=== PATIENT | female | born 1980 | race Caucasian/White ===

== ENCOUNTER 2022-10-06 13:17 | Outpatient (CLI) | payer OTHER, SELFPAY ==
--- NOTE | 2022-10-06 13:35 | ECG_ITS ---
Measurements Intervals [place] Rate: 102 P: 63 DC: 121 QRS: 51 QRSD: 82 T: 50 QT: 334 QTc: 437 Interpretive Statements SINUS TACHYCARDIA POSSIBLE LEFT ATRIAL ENLARGEMENT [-0.1mV P WAVE IN V1/V2] ABNORMAL RHYTHM ECG NO PREVIOUS ECG AVAILABLE FOR COMPARISON Electronically Signed On 10-06-2022 18:03:18 WORKERS COMPENSATION COORDINATOR by Darline Cevallos M.D.
[2022-10-06 14:19] LABS: Hematocrit 42.5 % (37.0-47.0); Hemoglobin 14.4 g/dL (12.0-15.0)
== END 2022-10-06 13:18 | disposition home or self-care (01) ==
PROVIDERS: Anesthesiology; Visit Provider Surgery Plastic and Reconstructive Surgery
DX: L57.4 Cutis laxa senilis (principal)
CPT/HCPCS: 36415; 85014; 85018; 93005

== ENCOUNTER 2022-10-12 01:01 | Day surgery (SDC) | payer OTHER, SELFPAY ==
[2022-09-27 14:13] VITALS: BMI 24.1
--- NOTE | 2022-09-27 14:34 | SUR.PREOP ---
Report to the Outpatient Waiting Room, entrance under the green pavilion located off [facility], at time 0830 on date 10/12/2022. Planned Procedure Time: 1030. Time changes happen often and if your time is changed the preop area will call you the afternoon before. - You and your visitor will be asked to self-screen and do not enter if you have any COVID symptoms. - Only one visitor is requested with a max of two and NO children visitors are allowed at this time. - The patient visitor may be requested to leave or wait in car when not with patient due to distancing restrictions. - A mask is optional within the hospital. Patients may have clear liquids (water, carbonated beverages, clear teas, apple juice) until 3 hours prior to surgery with a maximum of 20 ounces- 0730. - No food from midnight until time of surgery - Infants may have breast milk until 4 hours before surgery, formula 6 hours prior to surgery. - Children will be allowed to drink immediately following surgery. If applicable, please bring a bottle or sippy cup to assist with drinking. Juice, water, soda, and popsicles are readily available. For infants on formula, please bring formula the day of surgery. Pacifiers are allowed. Take the following medications with a SIP of water the morning of surgery: N/A Medications to discontinue per physician N/A Date to take last dose N/A Please no make-up, nail bulgarian, hairspray, perfume, deodorant, or body powder the day of surgery. No jewelry (including any body piercings) or valuables the day of surgery, leave them at home. Please take a shower or bath the night before, or the morning of, surgery with an antibacterial soap. Wear comfortable, loose fitting clothing. Children are encouraged to wear pajamas. - Jewelry must be removed prior to entering the operating room. Rings and piercings that are not removed may be cut off. - The hospital will not accept responsibility for valuables. - Please leave all valuables, including medications, at home the day of surgery. If you are going home after surgery, a licensed cdl a driver must drive you home. - NO public transportation without another adult if you receive anesthesia. - We recommend that an adult stay with you for 24 hours following discharge. - We also recommend that you do not drive, make important decision, drink alcoholic beverages, or take any drugs that were not prescribed by your health care provider for at least 24 hours after your discharge time. For Pediatric surgeries, we recommend two adults accompany the child home. Follow any additional instructions given to you from your surgeon. If you or anyone in your household have experienced Covid symptoms in the past week, please notify your surgeon or the nurse liaison at the phone number below for possible testing. Telephone instructions given to patient and asked if any additional questions and then verbalized understanding. Patient advised to call surgeon office or pre surgery nurse liaison [phone] if any additional questions.
[2022-10-12] VITALS (12 sets, daily range): BP systolic 105–125; BP diastolic 68–88; PULSE 94–123; RESP 13–18; TEMP 36.2–37.2; O2SAT 92–100
[2022-10-12 07:52] LABS: Urine Cotinine NEGATIVE
[2022-10-12] MEDS: LACTATED RINGERS 1,000 ML 30 ML IV CONT ×2 (08:00→13:02)
--- NOTE | 2022-10-12 08:14 | P.PNAN_ITS ---
Anes - Initial Pre Proc Eval Procedure: Operation Date: 10/12/22 09:00 Proposed Procedures p Bilateral Breast Augmentation, - Esequiel Ocasio MD s Abdominoplasty with Liposuction - Esequiel Ocasio MD Date/Time: 10/12/22 08:14 Surgeon: Esequiel Ocasio MD Pre Op Diagnosis: micromastia, skin laxity, localized adiposity Patient Data Age: 42 Gender: F Height: 1.6 m Weight: 61.8 kg Allergies Allergy/AdvReac Type Severity Reaction Status Date / Time adhesive tape Allergy Severe RASH Verified 10/12/22 08:09 ACYCLINE Allergy Severe RASH Uncoded 10/12/22 08:09 Home Medications Medication Instructions Recorded Confirmed Type venlafaxine See Rx Instructions .Route .COMPLEX 03/23/22 10/12/22 History Laboratory Tests 10/12/22 07:31 Cotinine Negative Patient hx anesthesia problems: other (stopped breathing) Family hx anesthesia problems: none Results Review: All pre-operative results and documents have been reviewed as part of the pre- operative evaluation. [facility] Past Medical History Medical History Anxiety Family History Family History Mother Breast cancer Brain cancer Lung cancer Social History Social History Smoking packs per day: 0.75 Smoking cigarettes per day: 15.0 Years smoked: 6 Smoking pack-years: 4.50 Smoking status: Former smoker Tobacco type: cigarettes Smoking end date: 10/17/11 Alcohol intake: current Drinks per week: 2 Substance use: never Living arrangements: with family Spiritual care concerns: No Anes - Eval Final PreProcedure Day of Procedure 10/12/22 08:14 Patient weight: normal Heart: regular rate and rhythm Lungs: clear to auscultation Airway: Mallampati scale Neurological: alert and oriented Last oral intake: >/= 8 hours ASA classification: II Emergent: no Anesthetic plan: proceed Anesthesia type and monitoring: general LMA and standard monitoring Results Review: All pre-operative results and documents have been reviewed as part of the pre- operative evaluation. Informed Consent: The patient's anesthetic plan and its attendant risks and benefits were discussed with the patient/family/POA. Questions were solicited and answers provided to the satisfaction of the patient/family/POA.
[2022-10-12] MEDS: SCOPOLAMINE 1.5 MG PATCH TRANSDERM (08:30)
--- NOTE | 2022-10-12 08:34 | WPDHPUPDATE1 ---
History and Physical Update Update Date/Time: 10/12/22 08:34 History and Physical has been reviewed, including an updated exam of the patient. There are NO changes in the patient's condition. Risks, benefits, and alternatives have been discussed and questions answered. Patient agrees to proceed with procedure.
--- NOTE | 2022-10-12 08:34 | W.PM.PROC2 ---
Procedure Note - Detailed Date of Procedure 10/12/22 Pre-op Diagnosis micromastia, skin laxity, localized adiposity Post-op Diagnosis Same Procedure Performed 1. Bilateral augmentation mammaplasty 2. Progressive tension abdominoplasty with suction lipectomy Surgeon Esequiel Ocasio MD Anesthesia General Findings Bilateral Lavonne Cohesive 560cc Right - REF# [id number] SN [id number] Left - REF# [id number] SN [id number] Abdominoplasty tissue removed: 982 grams Lipoaspirate: 2200 cc Description of Procedure They are here today for the above. Previously and again today the risks, benefits, alternatives were discussed in extensive detail. I wanted them to be very realistic about the risks involved as well as expectations. We discussed aftercare and what to monitor for. I was very upfront about the risks of wound breakdown leading to loss of skin, open wounds, and need for additional procedures with permanent abdominal deformity. We discussed DVT/PE risks and management. Made sure answered all of their questions to their satisfaction today and consent was obtained. They were marked in the preoperative holding area with their verification. The patient was taken to the operating room placed supine on the operating table. Anesthesia was provided by anesthesiology. A Tinoco catheter was started. They were prepped and draped in a standard sterile fashion. A surgical time-out was taken. Breast 1% lidocaine and 0.25% Marcaine with epinephrine was used anesthetize as a field block. She was prepped and draped in a standard sterile fashion. Tegaderm nipple Gamez were placed. A 15 blade used to make an incision along the inframammary fold. Dissection was continued at 45 degree angle until the chest wall as identified. I incised the pectoralis major along its inferior border and completely released the inferior border leaving the medial border intact. I created a subpectoral pocket in the appropriate dimensions based on our preoperative planning for the implant. I then copiously irrigated with saline solution and verified a strict hemostasis. Next the use a triple antibiotic and Betadine containing solution to irrigate the pocket. I washed my gloves with the triple antibiotic and Betadine solution. We washed the implant immediately upon opening it with this solution and only opened it when we needed it. I used implant funnel and no-touch technique. The implant was introduced into the pocket using the funnel. Having verified positioning of the implant this was closed using 2-0 Vicryl followed by 3-0 Monocryl in a running subcuticular 4-0 Monocryl followed by tissue glue. Abdomen I placed the patient in a flexed position to verify the upper and lower markings would reach. I then placed supine. A thorough abdominal examination was completed. Stab incisions were made and tumescent solution infiltrated. Once adequate time was allowed for hemostasis a 5mm basket cannula was utilized to complete suction lipectomy based on S.A.F.E. technique in multiple planes and passes. There were turned to bilateral lateral decubitus position with care taken to protect them for injury during this process. Suction lipectomy continued to result based on pre-operative planning, intra-operative observation, and rolling pinch test which were in full agreement. A 10 blade was used to make the upper incision. I continued dissection down to the level of fascia. Elevated just what was necessary for repair of the diastasis. I then again flexed the bed to verify the upper skin flap would reach the lower markings without tension. Once verified I placed her supine once again and a 10 blade used to make the lower incision. I elevated up to level the umbilicus and left the umbilicus intact on a well-vascularized stalk. The intervening tissue was removed. A 2 mm blunt cannula with 0.5% bupivicaine was injected deep to the fascia bilaterally. I plicated the diastasis recti usin
[2022-10-12] MEDS: ceFAZolin 2 GM/D5W 50 ML 2 GM/50 ML BAG IVPB (08:44)
[2022-10-12] MEDS: TRANEXAMIC ACID 1,000MG/ISO100 1,000 MG/100 ML BAG 200 MG IVPB (08:58)
[2022-10-12] MEDS: LIDOCAINE HCL 1% PF 30 ML VIAL 60 ML INFILTRATE (10:06)
[2022-10-12] MEDS: BUPIVACAINE/EPINEPHRINE 0.5% 30 ML VIAL 60 ML INFILTRATE (10:06)
[2022-10-12] MEDS: NACL 0.9% IRRIG POUR BOTTLE 900 ML, GENTAMICIN SULFATE INJ 160 MG, ceFAZolin 2 GM, POVI... IRRIGATION (11:19)
[2022-10-12] MEDS: LACTATED RINGERS IRRIG 1,000 ML, LIDOCAINE HCL 1% LOCAL INJ 50 ML, EPINEPHrine HCL INJ ... INFILTRATE (11:19)
[2022-10-12] MEDS: KETOROLAC 15 MG/ML VIAL (*BKC) IV PUSH (12:25)
[2022-10-12] MEDS: ceFAZolin SODIUM 1 GM VIAL IV PUSH (12:35)
[2022-10-12] MEDS: HYDROmorphone HCL INJ (*CRX) 1 MG/ML SYR 0.5 MG IV PUSH ×2 (13:36→13:49)
[2022-10-12] MEDS: GABAPENTIN 300 MG CAPSULE PO ×2 (14:32→20:17)
[2022-10-12] MEDS: LACTATED RINGERS 1,000 ML 125 ML IV CONT (14:33)
[2022-10-12] MEDS: carisoprodoL (*CRX) 350 MG TABLET PO ×2 (17:00→23:24)
[2022-10-12] MEDS: ENOXAPARIN 40 MG/0.4 ML SYRINGE SUB-Q (19:20)
[2022-10-12] MEDS: DOCUSATE SODIUM 100 MG CAPSULE PO (20:17)
[2022-10-12] MEDS: oxyCODONE/ACETAMINOPHEN (*CRX) 5-325 MG TABLET PO ×2 (20:18→23:24)
[2022-10-13 05:00] VITALS: BP 106/62; PULSE 118; RESP 16; TEMP 37.2
[2022-10-13] MEDS: oxyCODONE/ACETAMINOPHEN (*CRX) 5-325 MG TABLET PO ×2 (05:18→13:56)
[2022-10-13] MEDS: carisoprodoL (*CRX) 350 MG TABLET PO ×2 (05:19→12:24)
--- NOTE | 2022-10-13 07:10 | WPDPN ---
Progress Note: A&P Assessment and Plan (1) Micromastia: Code(s): N64.82 - Hypoplasia of breast Status: Acute Assessment and Plan: Doing well after bilateral augmentation mammaplasty and progressive tension abdominoplasty with suction lipectomy. Will discharge home. Today we had a lengthy discussion about the care. Activity limitations. What monitor for. What is an emergency and want to proceed to the ER/ dial 911. Explained we are available for all her questions. This was a lengthy open-ended conversation making sure she was well informed. She voiced a clear understanding. Answered all her questions. I will see her back. (2) Localized adiposity: Code(s): E65 - Localized adiposity Status: Acute (3) Skin laxity: Code(s): L57.4 - Cutis laxa senilis Status: Acute Subjective Date/time seen: 10/13/22 07:10 Interval history: She is doing very well after bilateral augmentation mammaplasty and progressive tension abdominoplasty with suction lipectomy.. No fevers or chills. No nausea vomiting. No shortness of breath. No chest pain. No tenderness. Pain is controlled. Tolerating some diet. Review of Systems Review of Systems: All systems reviewed & are unremarkable except as noted in HPI and below Exam Narrative: Alert and oriented no obvious distress Respiratory on labored Bilateral breast soft. No signs of infection. No hematoma. No seroma. Abdomen flanks are healing well. No signs of infection. No hematoma. No seroma. Good color and capillary refill. No calf tenderness. Negative Homans. Objective Data Vital Signs Vital Signs: Vital Signs - 24 hr 10/12/22 08:00 10/12/22 13:02 10/12/22 13:15 Temperature 37.0 C 36.2 C L Pulse Rate 94 117 H 118 H Respiratory Rate 16 14 16 Blood Pressure 114/78 125/83 120/73 Pulse Oximetry 100 100 100 Oxygen Delivery Room Air Simple Face Mask Simple Face Mask Oxygen Flow Rate 8 8 10/12/22 13:30 10/12/22 13:45 10/12/22 13:58 Temperature 36.6 C 36.6 C Pulse Rate 116 H 120 H 123 H Respiratory Rate 16 13 13 Blood Pressure 119/88 120/68 115/75 Pulse Oximetry 100 97 92 Oxygen Delivery Simple Face Mask Nasal Cannula Nasal Cannula Oxygen Flow Rate 8 2 2 10/12/22 14:10 10/12/22 14:10 10/12/22 14:30 Temperature 36.9 C Pulse Rate 120 H 120 H 110 H Respiratory Rate 18 18 Blood Pressure 124/79 Pulse Oximetry 98 98 96 Oxygen Delivery Nasal Cannula Nasal Cannula Oxygen Flow Rate 2 1 10/12/22 16:00 10/12/22 17:00 10/12/22 17:00 Temperature 36.9 C Pulse Rate 115 H Respiratory Rate 18 Blood Pressure 111/72 Pulse Oximetry 100 96 96 Oxygen Delivery Room Air Room Air Oxygen Flow Rate 10/12/22 18:45 10/12/22 18:45 10/12/22 23:52 Temperature 36.8 C 37.2 C Pulse Rate 120 H 119 H Respiratory Rate 18 18 Blood Pressure 118/74 105/68 Pulse Oximetry Oxygen Delivery Room Air Oxygen Flow Rate 10/12/22 23:25 10/13/22 04:06 10/13/22 05:00 Temperature 37.2 C Pulse Rate 118 H Respiratory Rate 16 Blood Pressure 106/62 Pulse Oximetry Oxygen Delivery Room Air Room Air Oxygen Flow Rate Intake/Output Intake/Output: Intake & Output 10/10/22 10/11/22 10/12/22 10/13/22 23:59 23:59 23:59 23:59 Intake Total 4910 400 Output Total 1150 250 Balance 3760 150 Meds/Results Medications: Active Medications Generic Name Dose Route Start Last Admin Trade Name Freq PRN Reason Stop Dose Admin Carisoprodol 350 mg 10/12/22 18:00 10/13/22 05:19 Carisoprodol (*Crx) 350 Mg Tablet PO 350 mg Q6HR GHASSAN Administration Diazepam 5 mg 10/12/22 12:41 Diazepam (*Crx) 5 Mg Tablet PO TID PRN Anxiety Docusate Sodium 100 mg 10/12/22 21:00 10/12/22 20:17 Docusate Sodium 100 Mg Capsule PO 100 mg Q12HR GHASSAN Administration Enoxaparin Sodium 40 mg 10/12/22 19:00 10/12/22 19:20 Enoxaparin 40 Mg/0.4 Ml Syringe SUB-Q 40 mg Q
--- NOTE | 2022-10-13 07:13 | P.DS_ITS ---
DS: Admitting Diagnosis Discharge Date 10/13/2022 Admitting Diagnosis Micromastia, skin laxity, localized adiposity DS: Discharge Diagnosis Discharge Diagnosis (1) Micromastia: Code(s): N64.82 - Hypoplasia of breast Status: Acute (2) Localized adiposity: Code(s): E65 - Localized adiposity Status: Acute (3) Skin laxity: Code(s): L57.4 - Cutis laxa senilis Status: Acute DS: Summary Hospital Course Hospital Course: Was admitted following bilateral augmentation mammaplasty and progressive tension abdominoplasty with suction lipectomy. Has done very well. Tolerating diet. Pain controlled. Ambulating. Will discharge home. Time Spent with Patient Time attestation: Total time spent providing and/or coordinating discharge services: Exam Narrative: Alert and oriented no obvious distress Respiratory on labored Bilateral breast soft. No signs of infection. No hematoma. No seroma. Abdomen flanks are healing well. No signs of infection. No hematoma. No seroma. Good color and capillary refill. No calf tenderness. Negative Homans. DS: Data Data Completed and Pending Labs on day of discharge: Labs from last 24 hours 10/12/22 07:31 Cotinine Negative Discharge Plan Discharge Patient Disposition: Home, Self-Care Discharge Instructions: POST OPERATIVE DISCHARGE INSTRUCTIONS ESEQUIEL OCASIO M.D. [facility] [address] [place] [address] * No driving for 24 hours after anesthesia and while you are taking pain medication. * Take all prescribed medication as directed * Diet as tolerated. * No lifting or activity that raises blood pressure for 48 hours. * Regular walking / ambulation. * May shower 24 hours after surgery. Once you shower do not take pain medication before showering as the combination of medication and heat may cause you to feel dizzy or pass out. * No pools or tubs for 2 weeks. * Slowly stand up straight as tolerated. * No straining or lifting more than 20 pounds. * If no bowel movement within 24 hours may use laxative. * Call with any questions or concerns. * Dressing Care: Continue abdominal binder / foam and surgical bra 23 hours per day. * Remove the Scopolamine patch that was placed behind your ear in 72 hours or less. Wash your hands after touching. If you have any questions or concerns, please call the office . If it is after hours you will be directed to the stone driller helper exchange. Shortness of breath, chest pain, or other medical emergency dial 911 / proceed to the Emergency Room. Stand Alone Forms: General Discharge Instructions Follow-up/Referrals: Esequiel Ocasio MD [Physician] - 1 Week Discharge Medications: Continued venlafaxine See Rx Instructions .ROUTE .COMPLEX Rx Instructions: takes 75MG at HS
[2022-10-13 07:30] VITALS: BP 95/60; PULSE 120; RESP 17; TEMP 36.9; O2SAT 95
--- NOTE | 2022-10-13 08:37 | WPDANESPN ---
Anes - Prog Note Post-Op Date/Time: 10/13/22 08:37 Cardiovascular status: normal Respiratory status: normal Airway patency: baseline Mental status: baseline Post-Op hydration status: normal Vital Signs: Last Vital Signs Temp 99.0 F 10/13/22 05:00 Pulse 118 H 10/13/22 05:00 Resp 16 10/13/22 05:00 BP 106/62 10/13/22 05:00 Pulse Ox 96 10/12/22 17:00 O2 Del Method Room Air 10/13/22 04:06 O2 Flow Rate 1 10/12/22 14:30 Pain Score (VAS): 5 I/O: Intake & Output 10/12/22 10/13/22 10/13/22 23:59 07:59 15:59 Intake Total 2960 400 Output Total 1100 250 Balance 1860 150 Patient Feedback: Patient satisfied with anesthetic care.
[2022-10-13] MEDS: GABAPENTIN 300 MG CAPSULE PO ×2 (11:03→17:00)
[2022-10-13] MEDS: DOCUSATE SODIUM 100 MG CAPSULE PO (11:04)
--- NOTE | 2022-10-13 12:28 | PC.NURSE ---
1140 Pt up to the shower to relax and try to void on her own. No success while in the shower. 1215 Pt feels the urge to void, sat on the toilet for 10 mins, no success. She would like to give herself a little more time and drink some more water before RN uses straight catheter. Says she feels like its right there . 1224 RN gave pt her Soma to help relax her muscles, she is in bed drinking her water. Will give pt another 30 mins and have her try to void on her own before doing straight catheter. Pt agreed.
== END 2022-10-13 18:20 | disposition home or self-care (01) ==
LOC: ANHSURGERY 08:35 → ANHOB2 14:06
PROVIDERS: Visit Provider Surgery Plastic and Reconstructive Surgery
PROC: (CPT 19325; principal; 2022-10-12 09:00)
PROC: (CPT 19325; 2022-10-12 09:00)
DX: Z41.1 Encounter for cosmetic surgery (principal); N64.82 Hypoplasia of breast; L57.4 Cutis laxa senilis; E65 Localized adiposity; F41.9 Anxiety disorder, unspecified; Z87.891 Personal history of nicotine dependence
CPT/HCPCS: 19325; 15830; 15847; 15877; 80307; 99199; A9270; J0171; J0690; J1100; J1170; J1580; J1650; J1885; J2250; J2370; J2405; J2704; J2710; J3010; J7120

== ENCOUNTER 2024-04-27 13:18 | Outpatient (CLI) | payer BC, SELFPAY ==
[2024-04-27 13:47] LABS: Hematocrit 43.2 % (37.0-47.0); Hemoglobin 14.6 g/dL (12.0-15.0); Mean Corpuscular HGB Conc 33.8 g/dl (32-36); Mean Corpuscular Hemoglobin 30.5 pg (26-34); Mean Corpuscular Volume 90.4 fl (80-100); Mean Platelet Volume 8.6 fl (7.4-10.4); Platelet Count Result 307 k/mm3 (150-375); Red Blood Count 4.78 M/mm3 (4.2-5.4); Red Cell Distribution Width 12.7 % (11.5-14.5); White Blood Count 5.8 K/mm3 (4.5-10.0)
== END 2024-04-27 13:19 | disposition home or self-care (01) ==
LOC: ANHSURGERY 13:22
PROVIDERS: Visit Provider Student in an Organized Health Care Education/Training Program
DX: Z30.2 Encounter for sterilization (principal)
CPT/HCPCS: 36415; 85027

== ENCOUNTER 2024-05-03 01:25 | Day surgery (SDC) | payer BC, SELFPAY ==
[2024-04-25 15:04] VITALS: BMI 21.2
--- NOTE | 2024-04-25 15:16 | SUR.PREOP ---
Report to the Outpatient Waiting Room, entrance under the green pavilion located off [facility], at 1100 on 05/03/24. Planned Procedure Time: 1300. Time changes happen often and if your time is changed the preop area will call you the afternoon before. - You and your visitor will be asked to self-screen and do not enter if you have any COVID symptoms. - A mask is optional within the hospital at this time. Patients may have clear liquids (water, carbonated beverages, clear teas, apple juice) until 3 hours prior to surgery with a maximum of 20 ounces. - No food from midnight until time of surgery - Infants may have breast milk until 4 hours before surgery, infant formula 6 hours prior to surgery. - Children will be allowed to drink immediately following surgery. If applicable, please bring a bottle or sippy cup to assist with drinking. Juice, water, soda, and popsicles are readily available. For infants on formula, please bring formula the day of surgery. Pacifiers are allowed. Take the following medications with a SIP of water the morning of surgery: n/a DO NOT STOP ANY OF YOUR OTHER PRESCRIPTION MEDICATIONS PRIOR TO SURGERY ?EXCEPT THE FOLLOWING Medications to discontinue per physician n/a Date to take last dose n/a Please no make-up, nail iranian, hairspray, perfume, deodorant, or body powder the day of surgery. No jewelry (including any body piercings) or valuables the day of surgery, leave them at home. Please take a shower or bath the night before, or the morning of, surgery with an antibacterial soap. Wear comfortable, loose fitting clothing. - Jewelry must be removed prior to entering the operating room. Rings and piercings that are not removed may be cut off. - The hospital will not accept responsibility for valuables. - Please leave all valuables, including medications, at home the day of surgery. If you are going home after surgery, a licensed funeral driver must drive you home. - NO public transportation without another adult if you receive anesthesia. - We recommend that an adult stay with you for 24 hours following discharge. - We also recommend that you do not drive, make important decision, drink alcoholic beverages, or take any drugs that were not prescribed by your health care provider for at least 24 hours after your discharge time. Follow any additional instructions given to you from your surgeon. If you or anyone in your household have experienced Covid symptoms in the past week, please notify your surgeon or the nurse liaison at the phone number below for possible testing. Telephone instructions given to patient and asked if any additional questions and then verbalized understanding. Patient advised to call surgeon office or pre surgery nurse liaison [phone] if any additional questions.
--- NOTE | 2024-05-02 13:21 | PM.IMHP ---
H&P: HPI History of Present Illness Date/Time: 05/02/24 13:21 Chief Complaint: encounter for permanent sterilization Narrative: 43-year-old female who presents for laparoscopic bilateral salpingectomy for permanent sterilization. Patient and her do not desire any future children. given her history and risk of breast cancer, she would like to avoid any hormonal contraception. Patient desires permanent sterilization via tubal ligation. Review of Systems Cardiovascular: Cardiovascular: Denies chest pain, Denies leg edema, Denies palpitations, Denies dyspnea and Denies dyspnea on exertion Respiratory: Respiratory: Denies cough, Denies dyspnea and Denies dyspnea on exertion Gastrointestinal: Gastrointestinal: Denies abdominal pain, Denies constipation, Denies diarrhea, Denies nausea and Denies vomiting Genitourinary: Genitourinary: Denies hematuria, Denies urinary frequency, Denies dysuria, Denies pelvic pain, Denies urinary incontinence and Denies vaginal discharge Neurologic: Reports system reviewed and no additional complaints, except as documented Psychiatric: Psychiatric: Reports no additional psychiatric complaints Endocrine: Endocrine: Denies palpitations PMFSH Past Medical History Medical History Anxiety Surgical History Surgical History H/O abdominoplasty H/O liposuction of abdomen H/O lumpectomy L breast benign History of ERCP Hx of breast augmentation Hx of cholecystectomy Family History Family History (System 04/18/24 @ 09:37 by Ino Reyes) Mother Breast cancer Brain cancer Lung cancer Grandparent Breast cancer Brain cancer Leukemia Father Hypertension Sibling Pharyngeal disorder Social History Social History (System 04/18/24 @ 09:37 by Ino Reyes) Smoking packs per day: 0.5 Smoking cigarettes per day: 10.0 Years smoked: 5 Smoking pack-years: 2.50 Smoking status: Former smoker Tobacco type: cigarettes Second hand tobacco smoke exposure: No Smoking end date: 04/25/12 Alcohol intake: current Drinks per week: 1 Alcohol use details: mixed drink Substance use: never Substance use type: does not use Do You Feel Safe in your Home?: Yes Lack of Transportation: No Lack of Food: Never True Current Housing: I Have Housing Concerned About Future Housing: No Difficulty Paying Gas/Electric Bills: No Difficulty Paying for Meds: No Currently Unemployed: No Education: Bachelor's Degree Difficulty w/ Childcare or Family Care: No Living arrangements: with family Occupation/Education: occupation 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[employer] Gender identity (if verbalized by the patient): Female Sexual Orientation (if Verbalized by the Patient): Straight or Heterosexual Spiritual care concerns: No Meds Home Medications and Allergies Home Medications Medication Instructions Recorded Confirmed Type venlafaxine 75 mg capsule,extended 75 mg PO HS 04/09/24 04/25/24 History release 24 hr Allergies Allergy/AdvReac Type Severity Reaction Status Date / Time adhesive tape Allergy Severe RASH Verified 04/25/24 15:02 ACYCLINE Allergy Severe RASH Uncoded 04/25/24 15:02 Exam Const: General: no acute distress Eyes: EOM: EOMs intact bilaterally Neck: Neck: supple Thyroid: thyroid normal Chest: Breast/axilla inspection: normal inspection of the breasts Breast/axilla palpation: normal palpation of the breasts, normal palpation of the axillae and no axillary lymphadenopathy Resp: Effort & Inspection: normal respiratory effort Auscultation: clear to auscultation bilaterally Cardio: Rate: regular rate Rhythm: regular rhythm GI: Inspection: non-distended GI Palp: Yes Soft to palpation, No Tenderness to palpation present (GI) and No Guarding due to palpation present (GI) Auscultation
[2024-05-03] VITALS (9 sets, daily range): BP systolic 95–121; BP diastolic 60–87; PULSE 82–112; RESP 12–16; TEMP 36.3–36.9; O2SAT 99–100
[2024-05-03] MEDS: KETOROLAC 15 MG/ML VIAL (*BKC) IV PUSH (12:00)
[2024-05-03] MEDS: ACETAMINOPHEN 500 MG TABLET 1000 MG PO (12:00)
[2024-05-03] MEDS: LACTATED RINGERS 1,000 ML 30 ML IV CONT (12:00)
--- NOTE | 2024-05-03 12:06 | WPDHPUPDATE1 ---
History and Physical Update Update Date/Time: 05/03/24 12:06 History and Physical has been reviewed, including an updated exam of the patient. There are NO changes in the patient's condition. Risks, benefits, and alternatives have been discussed and questions answered. Patient agrees to proceed with procedure.
--- NOTE | 2024-05-03 12:31 | WPDANESEPPF ---
Anes - Initial Pre Proc Eval Procedure: Operation Date: 05/03/24 13:00 Proposed Procedures p Bilateral Laparoscopic Salpingectomy - Dany Dotson MD Date/Time: 05/03/24 12:31 Surgeon: Dany Dotson MD Pre Op Diagnosis: desires sterilization Patient Data Age: 43 Gender: F Height: 1.6 m Weight: 54.43 kg Last Vital Signs Temp 98.0 F 05/03/24 12:02 Pulse 82 05/03/24 12:02 Resp 16 05/03/24 12:02 BP 121/87 05/03/24 12:02 Pulse Ox 100 05/03/24 12:02 O2 Del Method Room Air 05/03/24 12:02 Allergies Allergy/AdvReac Type Severity Reaction Status Date / Time adhesive tape Allergy Severe RASH Verified 05/03/24 12:14 ACYCLINE Allergy Severe RASH Uncoded 05/03/24 12:14 Home Medications Medication Instructions Recorded Confirmed Type venlafaxine 75 mg capsule,extended 75 mg PO HS 04/09/24 04/25/24 History release 24 hr Patient hx anesthesia problems: other (Pt reports that she had to be reintubated briefly after [place] for ERCP several years ago at [place]. No other information is clearly available. ) Family hx anesthesia problems: none Results Review: All pre-operative results and documents have been reviewed as part of the pre-operative evaluation. [facility] Past Medical History Medical History Anxiety Surgical History Surgical History H/O abdominoplasty H/O liposuction of abdomen H/O lumpectomy L breast benign History of ERCP Hx of breast augmentation Hx of cholecystectomy Family History Family History Mother Breast cancer Brain cancer Lung cancer Grandparent Breast cancer Brain cancer Leukemia Father Hypertension Sibling Pharyngeal disorder Social History Social History Smoking packs per day: 0.5 Smoking cigarettes per day: 10.0 Years smoked: 5 Smoking pack-years: 2.50 Smoking status: Former smoker Tobacco type: cigarettes Second hand tobacco smoke exposure: No Smoking end date: 04/25/12 Alcohol intake: current Drinks per week: 1 Alcohol use details: mixed drink Substance use: never Substance use type: does not use Do You Feel Safe in your Home?: Yes Lack of Transportation: No Lack of Food: Never True Current Housing: I Have Housing Concerned About Future Housing: No Difficulty Paying Gas/Electric Bills: No Difficulty Paying for Meds: No Currently Unemployed: No Education: Bachelor's Degree Difficulty w/ Childcare or Family Care: No Living arrangements: with family Occupation/Education: occupation 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[employer] Gender identity (if verbalized by the patient): Female Sexual Orientation (if Verbalized by the Patient): Straight or Heterosexual Spiritual care concerns: No Anes - Eval Final PreProcedure Day of Procedure 05/03/24 12:31 Patient weight: normal Heart: regular rate and rhythm Lungs: clear to auscultation Airway: Mallampati scale class II Neurological: alert and oriented Last oral intake: >/= 8 hours ASA classification: II Anesthetic plan: proceed Anesthesia type and monitoring: general ETT and standard monitoring Results Review: All pre-operative results and documents have been reviewed as part of the pre-operative evaluation. Pt w anxiety, long time ex smoker, quit 2011. Informed Consent: The patient's anesthetic plan and its attendant risks and benefits were discussed with the patient/family/POA. Questions were solicited and answers provided to the satisfaction of the patient/family/POA.
[2024-05-03] MEDS: LIDO 1%/EPINEPHRINE 1:100,000 50 ML VIAL 12 ML INFILTRATE (13:35)
--- NOTE | 2024-05-03 13:48 | P.OP_ITS ---
Procedure Note - Detailed Date of Procedure 05/03/24 Pre-op Diagnosis desires sterilization Post-op Diagnosis Same Procedure Performed laparoscopic bilateral salpingectomy Surgeon Dany Dotson MD Anesthesia General Indications desires permanent sterilization Findings normal appearing uterus, bilateral fallopian tubes and ovaries Description of Procedure the patient was taken to the operating room where general endotracheal anesthesia was undertaken and found to be adequate. She was then prepped and draped in the dorsal lithotomy position. A pre-operative team brief and time- out were completed. A catheter was placed to drain the bladder. Speculum was placed in the vagina and the cervix was identified. An acorn uterine manipulator was placed as well as single-tooth tenaculum on the anterior lip of the cervix. Attention was then turned to the abdomen which was anesthetized umbilical he with injected anesthetic. A 5 mm skin incision was made in the umbilicus. A 5 mm optical trocar was then placed with direct visualization of the abdominal layers during placement. The trocar stylette was removed and the camera was used to verify intra-abdominal placement.debra was used to verify intra-abdominal placement. CO2 insufflation was then connected and The abdominal cavity was insufflated. General abdominal and pelvic survey was performed. Two other laparoscopic port site incisions were made approximately 2 cm superior and medial of the ASIS bilaterally. Both fallopian tubes were inspected and identified out to the level of the fimbriae. The Fimbriated end of the left fallopian tube was then grasped with a blunt grasper. the fallopian tube was then transected along its inferior aspect along the mesosalpinx with the LigaSure device. Transection was carried out to the fallopian tubes insertion into the uterine fundus. The fallopian tube was then completely transected from the uterus using the LigaSure device. This procedure was repeated for the right fallopian tube. Good hemostasis was maintained throughout. The transected fgh the 5 mm laparoscopic portrom the abdomen through the 5 mm laparoscopic port. The surgical field was inspected and again could hemostasis was noted. At this point the procedure was ended. The abdomen was desufflated. All laparoscopic ports were removed from the abdomen. Abdominal incisions were closed with 4-0 Vicryl in a subcuticular fashion.. The acorn manipulator and tenaculum weere removed from the vagina. The cervix was inspected and good hemostasis was obtained. Sponge, lap and needle counts were correct. The patient tolerated the procedure well. The patient was taken out of dorsal lithotomy. anesthesia was reversed. The patient was taken to PACU in stable condition. Estimated Blood Loss 10 Urine Output 150 Drains No Packing No Pathology Yes ( Bilateral fallopian tubes) Complications No immediate complications Condition Stable Disposition PACU [facility] Billing Surgery - Charge Forward: Surgery Billing
--- NOTE | 2024-05-03 14:32 | SUR.PHASEI ---
1425: Simple mask removed.
== END 2024-05-03 16:21 | disposition home or self-care (01) ==
PROVIDERS: Visit Provider Student in an Organized Health Care Education/Training Program
PROC: (CPT 49320; principal; 2024-05-03 13:00)
DX: Z30.2 Encounter for sterilization (principal); F41.9 Anxiety disorder, unspecified; Z87.891 Personal history of nicotine dependence
CPT/HCPCS: 58661; 88302; A9270; J0330; J1100; J1885; J2250; J2405; J2704; J3010; J7030; J7120

== ENCOUNTER 2024-05-24 01:52 | Day surgery (SDC) | payer OTHER, SELFPAY ==
--- NOTE | 2024-05-18 15:17 | SUR.PREOP ---
Report to the Outpatient Waiting Room, entrance under the green pavilion located off [facility], at time 0700 on date 05/24/24. Planned Procedure Time: 0900. Time changes happen often and if your time is changed the preop area will call you the afternoon before. - You and your visitor will be asked to self-screen and do not enter if you have any COVID symptoms. - A mask is optional within the hospital at this time. Patients may have clear liquids (water, carbonated beverages, clear teas, apple juice) until 3 hours prior to surgery with a maximum of 20 ounces. - No food from midnight until time of surgery - Infants may have breast milk until 4 hours before surgery, infant formula 6 hours prior to surgery. - Children will be allowed to drink immediately following surgery. If applicable, please bring a bottle or sippy cup to assist with drinking. Juice, water, soda, and popsicles are readily available. For infants on formula, please bring formula the day of surgery. Pacifiers are allowed. Take the following medications with a SIP of water the morning of surgery: N/A DO NOT STOP ANY OF YOUR OTHER PRESCRIPTION MEDICATIONS PRIOR TO SURGERY ?EXCEPT THE FOLLOWING Medications to discontinue per physician N/A Date to take last dose N/A Please no make-up, nail hebrew, hairspray, perfume, deodorant, or body powder the day of surgery. No jewelry (including any body piercings) or valuables the day of surgery, leave them at home. Please take a shower or bath the night before, or the morning of, surgery with an antibacterial soap. Wear comfortable, loose fitting clothing. Children are encouraged to wear pajamas. - Jewelry must be removed prior to entering the operating room. Rings and piercings that are not removed may be cut off. - The hospital will not accept responsibility for valuables. - Please leave all valuables, including medications, at home the day of surgery. If you are going home after surgery, a licensed taxi driver must drive you home. - NO public transportation without another adult if you receive anesthesia. - We recommend that an adult stay with you for 24 hours following discharge. - We also recommend that you do not drive, make important decision, drink alcoholic beverages, or take any drugs that were not prescribed by your health care provider for at least 24 hours after your discharge time. For Pediatric surgeries, we recommend two adults accompany the child home. Follow any additional instructions given to you from your surgeon. If you or anyone in your household have experienced Covid symptoms in the past week, please notify your surgeon or the nurse liaison at the phone number below for possible testing. Telephone instructions given to YAZMIN CONRAD and asked if any additional questions and then verbalized understanding. Patient advised to call surgeon office or pre surgery nurse liaison [phone] if any additional questions.
[2024-05-24] VITALS (9 sets, daily range): BP systolic 109–140; BP diastolic 67–97; PULSE 86–120; RESP 12–18; TEMP 36.2–36.4; O2SAT 94–100
[2024-05-24] MEDS: LACTATED RINGERS 1,000 ML 30 ML IV CONT ×2 (08:00→10:22)
--- NOTE | 2024-05-24 08:51 | WPDHPUPDATE1 ---
History and Physical Update Update Date/Time: 05/24/24 08:51 History and Physical has been reviewed, including an updated exam of the patient. There are NO changes in the patient's condition. Risks, benefits, and alternatives have been discussed and questions answered. Patient agrees to proceed with procedure.
--- NOTE | 2024-05-24 08:51 | W.PM.PROC2 ---
Procedure Note - Detailed Date of Procedure 05/24/24 Pre-op Diagnosis Lt Breast Implant Rupture Post-op Diagnosis Same Procedure Performed Left breast implant exchange Surgeon Esequiel Ocasio MD Anesthesia General Indications History bilateral breast augmentation September 2022 with [id number]. MRI worrisome for left breast implant rupture. She has developed left breast shape change and now pain (Grade 4 capsule left). She would like to proceed with exchange. Findings Previous Implant: SCM-560 Intact New Implant: Left Lavonne Danielsira Cohesive REF# [id number] Description of Procedure Preoperatively the risks, benefits, alternatives were discussed in extensive detail. I wanted to be very realistic about the risks involved as well as expectations. I was clear about how we could actually make her worse. Answered all questions to satisfaction. Voiced a clear understanding. Consent obtained. She was taken the operating room placed supine on the operating room table. Anesthesia provided by anesthesiology and prepped and draped in a standard sterile fashion. Surgical time-out was taken. 1% lidocaine and 0.25% Marcaine with epinephrine was used to provide a field block. Tegaderm nipple nash were placed. Fifteen blade used to excise the previous left IMF scars. Dissection was continued down until the capsules were identified and excised a significant portion of the capsule which was sent to pathology. I then copiously irrigated with 3 L of saline solution on TUR tubing. Verified strict hemostasis. Next irrigated copiously with PhaseOne which was allowed to soak for more than 15 minutes. I then irrigated with Betadine containing solution. Using a no-touch technique and a Lino funnel the implant was introduced into the pocket. This was closed with 2-0 PDS followed by 3-0 Monocryl and a running subcuticular 4-0 Monocryl followed by tissue glue. Dressings were placed. She was woken taken to the PACU without difficulty. All instrument sponge counts were correct at the end of the case. Estimated Blood Loss 20 Drains No Packing No Pathology Yes (Left breast capsule) Complications No immediate complications Condition Stable Disposition PACU
--- NOTE | 2024-05-24 08:57 | WPDANESEPPF ---
Anes - Initial Pre Proc Eval Procedure: Operation Date: 05/24/24 09:00 Proposed Procedures p Left Breast Implant Exchange - Esequiel Ocasio MD Date/Time: 05/24/24 08:57 Surgeon: Esequiel Ocasio MD Pre Op Diagnosis: Lt Breast Implant Rupture Patient Data Age: 43 Gender: F Height: Weight: 55.1 kg Last Vital Signs Temp 97.4 F L 05/24/24 08:00 Pulse 86 05/24/24 08:00 Resp 18 05/24/24 08:00 BP 109/67 05/24/24 08:00 Pulse Ox 100 05/24/24 08:00 O2 Del Method Room Air 05/24/24 08:00 Allergies Allergy/AdvReac Type Severity Reaction Status Date / Time adhesive tape Allergy Severe RASH Verified 05/24/24 08:16 ACYCLINE Allergy Severe RASH Uncoded 05/24/24 08:16 Home Medications Medication Instructions Recorded Confirmed Type venlafaxine 75 mg capsule,extended 75 mg PO HS 04/09/24 05/22/24 History release 24 hr Patient hx anesthesia problems: none Family hx anesthesia problems: none Results Review: All pre-operative results and documents have been reviewed as part of the pre-operative evaluation. [facility] Past Medical History Medical History Anxiety Surgical History Surgical History H/O abdominoplasty H/O liposuction of abdomen H/O lumpectomy L breast benign History of ERCP Hx of breast augmentation Hx of cholecystectomy Family History Family History Mother Breast cancer Brain cancer Lung cancer Grandparent Breast cancer Brain cancer Leukemia Father Hypertension Sibling Pharyngeal disorder Social History Social History Smoking packs per day: 0.5 Smoking cigarettes per day: 10.0 Years smoked: 5 Smoking pack-years: 2.50 Smoking status: Former smoker Tobacco type: cigarettes Second hand tobacco smoke exposure: No Smoking end date: 04/25/12 Alcohol intake: current Drinks per week: 2 Alcohol use details: mixed drink Substance use: never Substance use type: does not use Do You Feel Safe in your Home?: Yes Lack of Transportation: No Lack of Food: Never True Current Housing: I Have Housing Concerned About Future Housing: No Difficulty Paying Gas/Electric Bills: No Difficulty Paying for Meds: No Currently Unemployed: No Education: Bachelor's Degree Difficulty w/ Childcare or Family Care: No Living arrangements: with family Occupation/Education: occupation 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[employer] Gender identity (if verbalized by the patient): Female Sexual Orientation (if Verbalized by the Patient): Straight or Heterosexual Spiritual care concerns: No Anes - Eval Final PreProcedure Day of Procedure 05/24/24 08:57 Patient weight: normal Heart: regular rate and rhythm Lungs: clear to auscultation Airway: Mallampati scale class II Neurological: alert and oriented Last oral intake: >/= 8 hours ASA classification: II Emergent: no Anesthetic plan: proceed Anesthesia type and monitoring: general LMA and standard monitoring Results Review: All pre-operative results and documents have been reviewed as part of the pre-operative evaluation. Informed Consent: The patient's anesthetic plan and its attendant risks and benefits were discussed with the patient/family/POA. Questions were solicited and answers provided to the satisfaction of the patient/family/POA.
[2024-05-24] MEDS: BUPivacaine HCL 0.25% PF 30 ML VIAL 15 ML INFILTRATE (09:14)
[2024-05-24] MEDS: ceFAZolin 2 GM/D5W 50 ML 2 GM/50 ML BAG IVPB (09:14)
[2024-05-24] MEDS: LIDO 1%/EPINEPHRINE 1:100,000 50 ML VIAL 15 ML INFILTRATE (09:14)
[2024-05-24] MEDS: NACL 0.9% IRRIG POUR BOTTLE 900 ML, GENTAMICIN SULFATE INJ 160 MG, ceFAZolin 2 GM, POVI... IRRIGATION (09:14)
[2024-05-24] MEDS: TRANEXAMIC ACID 1,000MG/ISO100 1,000 MG/100 ML BAG 200 MG IVPB (09:27)
[2024-05-24] MEDS: oxyCODONE HCL (*CRX) 5 MG TAB IR PO (11:53)
== END 2024-05-24 12:30 | disposition home or self-care (01) ==
PROVIDERS: Visit Provider Surgery Plastic and Reconstructive Surgery
PROC: (CPT 19371; principal; 2024-05-24 09:00)
DX: T85.49XA Other mechanical complication of breast prosthesis and implant, initial encounter (principal); F41.9 Anxiety disorder, unspecified; Z98.890 Other specified postprocedural states; Z90.49 Acquired absence of other specified parts of digestive tract; Z87.891 Personal history of nicotine dependence; Z80.3 Family history of malignant neoplasm of breast; Z80.1 Family history of malignant neoplasm of trachea, bronchus and lung; Z80.8 Family history of malignant neoplasm of other organs or systems; Y83.8 Other surgical procedures as the cause of abnormal reaction of the patient, or of later complication, without mention of misadventure at the time of the procedure
CPT/HCPCS: 19371; 19325; 88304; A9270; J0690; J1100; J1200; J1580; J2250; J2371; J2405; J2704; J3010; J7120

== ENCOUNTER 2024-08-23 12:35 | Outpatient (CLI) | payer BC, SELFPAY ==
[2024-08-23 13:10] LABS: Hematocrit 41.8 % (37.0-47.0); Hemoglobin 14.2 g/dL (12.0-15.0)
[2024-08-23 13:52] LABS: Thyroid Stimulating Hormone 0.465 uIU/mL (0.465-4.680)
[2024-08-24 09:04] LABS: FSH 9.4 mIU/mL
== END 2024-08-23 12:36 | disposition home or self-care (01) ==
LOC: ANHLAB 12:36
PROVIDERS: Visit Provider Student in an Organized Health Care Education/Training Program
DX: N95.1 Menopausal and female climacteric states (principal)
CPT/HCPCS: 36415; 82670; 83001; 84443; 85014; 85018

== ENCOUNTER 2024-09-05 10:06 | Outpatient (CLI) | payer BC, SELFPAY ==
--- NOTE | ~2024-09-05 | US_ITS ---
US pelvic complete w TV Ordering provider: Dany Dotson MD History: . N93.9 - Abnormal uterine and vaginal bleeding, unspecified . Comparison: None. Technique: Transabdominal and endovaginal ultrasound of the pelvis (Doppler ultrasound interrogation techniques used as needed for this exam.) FINDINGS: CERVIX: Normal. UTERUS: Measures 6.7x 4.4x 5.8 cm in length which is within normal limits and is anteverted. Inhomog enous myometrium more prominent in the fundus ENDOMETRIUM: Normal in thickness measuring 2.7 mm. No e ndometrial masses, cysts or fluid. CUL DE SAC: No free fluid. RIGHT OVARY: Normal in size measuring 2.7x 1.4x 1.1 cm. Normal echotexture. Doppler vascular flow pre sent. LEFT OVARY: Normal in size measuring 2.2x 1.1x 0.9 cm. Normal echotexture. Doppler vascular flow pres ent. ADNEXA: Normal. No mass. IMPRESSION: Heterogenous echogenicity of the myometrium more prominent in the fundus. Possibility of fibroids is not excluded. Follow-up advised. Otherwise, normal pelvic ultrasound. Reviewed, dictated and finalized at location A. ING INSPECTOR IMPRESSION: Heterogenous echogenicity of the myometrium more prominent in the fundus. Possi bility of fibroids is not excluded. Follow-up advised. Otherwise, normal pelvic ultrasound.
== END 2024-09-05 10:07 | disposition home or self-care (01) ==
LOC: ANHIMG 10:10
PROVIDERS: Visit Provider Student in an Organized Health Care Education/Training Program
DX: N93.9 Abnormal uterine and vaginal bleeding, unspecified (principal); N95.1 Menopausal and female climacteric states
CPT/HCPCS: 76830; 76856

== ENCOUNTER 2025-05-09 12:16 | Outpatient (CLI) | payer BC, SELFPAY ==
--- NOTE | ~2025-05-09 | MM_ITS ---
EXAMINATION: MM screening blair implant BI w zoila INDICATION: Asymptomatic, referred for screening mammogram COMPARISON: None available TECHNIQUE: Digital Breast Tomosynthesis CC, MLO, and implant displaced CC and MLO views of Both breas ts were obtained with computer-aided detection to assist in interpretation of the study. FINDINGS: The breasts are heterogeneously dense, which may obscure small masses. Bilateral breast Retropectoral Silicone implants in place appears intact. No focal dominant mass, architectural distortion, or suspicious microcalcifications are identified. There are no features to suggest malignancy. IMPRESSION: 1. No evidence of malignancy in the breasts. 2. Both breasts Retropectoral Silicone implants appears intact. Recommend continued screening mammography BI-RADS 1, NEGATIVE Reviewed, dictated and finalized at location B.
--- OUTSIDE RECORDS SUMMARY | 2025-05-09 12:19 | XMS_ITS | Encounter Summary ---
Author Organization [facility] Care Team Providers Care Oven Operator Automatic Name Role Phone Lana Schaffer Primary Care Provider [phone] Jaiden Quigley MD Primary Care Provide r Jaiden Quigley MD Primary Care Provide r Lo Jay NP Primary Care Provider [phone] Jaiden Quigley MD Unavailable Ruth Navarrete MD Unavailable [phone] Clare Coronado [facility] Unavailable [phone] Nikolai Martin MD Unavailable Encounter Details Date Type Department Care Team (Latest Contact Info) Description 05/09/2017 Orders Only [facility] ProviderEddie MD [address] [place] [id number] Social History Tobacco Use Types Packs/Day Years Used Date Smoking Tobacco: Never Assessed Comments Unknown Sex and Gender Information Value Date Recorded Sex Assigned at Not on file Legal 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 us Historical Provider MD Final Res ult documented in this encounter Visit Diagnoses Not on filedocumented in this encounter Care Teams Oven Operator Automatic Relationship Specialty Start Date End Date Lana Schaffer PA [address] [place] [address] PCP - General 01/12/19 01/07/21 Jaiden Quigley MD [address] [place] [address] PCP - General 01/08/21 03/05/21 Jaiden Quigley MD [address] [place] [address] PCP - General 03/06/21 02/14/25 Lo Jay, TILE GRADER [address] [place] [id number] PCP - General Family Medicine 02/15/25 Jaiden Quigley MD [address] [place] [address] 02/15/25 Ruth Navarrete MD [address] [place] [address] Consulting Physician Family Medicine 06/06/19 Clare Coronado CNM [address] [place] [address] Nurse Practitioner Midwifery 01/07/21 Nikolai Martin MD [address] [place] [address] Consulting Physician General Surgery 04/16/22 documented as of this encounter
--- OUTSIDE RECORDS SUMMARY | 2025-05-09 12:19 | XMS_ITS | Clinical Summary ---
Author Organization [facility] Address [address] [place] [address] Care Team Providers [facility] Insurance Clerk Name Role Phone Unavailable Primary Care Provider Unavailabl e Source Comments [facility],non-owned Affiliates and Associated Physician Practices is amultiple site organization consisting of ambulatory clinics and hospital sitesin [place], [place], [place] and [place]. This disclosure is being madepursuant to the Care Everywhere program and may not contain all information available regarding this patient. Last updated 18.[facility] Social History Tobacco Use Types Packs/Day Years Used Date Smoking Tobacco: Never Assessed Comments Unknown Sex and Gender Information Value Date Recorded Sex Assigned at Not on file Legal Sex Female 8:21 AM CDT Gender Identity Not on file Sexual Orientation Not on file Plan of Treatment Health Maintenance Due Date Last Done Comments LIPID TESTING 1982 MAMMOGRAM 1982 HIV SCREENING 1997 HEPATITIS C SCREENING 06/25/2000 DTAP/TDAP/TD VACCINES (1 - Tdap) 2001 HEPATITIS B VACCINE (1 of 3 - 19+ 3-dose series) 2001 PAP SMEAR 2003 HPV VACCINE (1 - 3-dose SCDM series) 2009 COVID-19 VACCINE ( - 2023- season) 2024 DEPRESSION SCREENING 10/17/2024 INFLUENZA VACCINE (#1) 2025 , 08/14/2019, 09/04/2018, Additional history exists ZOSTER VACCINE (1 of 2) 2032 HIB VACCINE Aged Out No longer eligi ble based on patient's age to complete this topic MENINGOCOCCAL (Group B) VACCINE SHARED DECISION-MAKING Aged Out No longer eligible based on patient's age to complete this topic MENINGOCOCCAL GROUPS A/C/Y/W VACCINE Aged Out No longer eligible based on patient's age to complete this topic PNEUMOCOCCAL VACCINE Aged Out No long er eligible based on patient's age to complete this topic Insurance [employer] SELF PAY NO INSURANCE Member Subscriber Plan / Payer (Ef fective for All Dates) Name:Yazmin Conrad Member ID:Not on file Relation to Subscriber:Not on file Name:YAZMIN CONRAD Subscriber ID:Not on file (Home) Address: [address] [place] [id number] Payer ID:Not on file Group ID:Not on file Type:Self Pay Address: [facility] * Guarantor: YAZMIN CONRAD Account Type Relation to Patient Date of Phone Billing Address Personal/Family [id number] [place] [address] [facility] SELF PAY NO INSURANCE Member Subscriber Plan / Payer (Ef fective for All Dates) Name:Yazmin Conrad Member ID:Not on file Relation to Subscriber:Not on file Name:YAZMIN CONRAD Subscriber ID:Not on file Address: [address] [place] [address] Payer ID:Not on file Group ID:Not on file Type:Self Pay Address: [place], [place] * Guarantor: YAZMIN CONRAD Account Type Relation to Patient Date of Phone Billing Address Personal/Family [id number] [place] [address] [facility] SELF PAY NO INSURANCE Member Subscriber Plan / Payer (Ef fective for All Dates) Name:Yazmin Conrad Member ID:Not on file Relation to Subscriber:Not on file Name:YAZMIN CONRAD Subscriber ID:Not on file Address: [address] [place] [address] Payer ID:Not on file Group ID:Not on file Type:Self Pay Address: [place], [place] * Guarantor: YAZMIN CONRAD Account Type Relation to Patient Date of Phone Billing Address Personal/Family [id number] [place] [address] [facility] SELF PAY NO INSURANCE Member Subscriber Plan / Payer (Ef fective for All Dates) Name:Yazmin Conrad Member ID:Not on file Relation to Subscriber:Not on file Name:YAZMIN CONRAD Subscriber ID:Not on file Address: [facility] [place] [address] Payer ID:Not on file Group ID:Not on file Type:Self Pay Address: [place], [place] * Guarantor: YAZMIN MOTA Account Type Relation to Patient Date of Phone Billing Address Personal/Family [id number] [place] [id number]
--- OUTSIDE RECORDS SUMMARY | 2025-05-09 12:19 | XMS_ITS | Clinical Summary ---
Author Organization [facility] Address [address] [place] [address] Care Team Providers Care Computerized Mill Recorder Name Role Phone Lo Jay NP Primary Care Provider [phone] Jaiden Quigley MD Unavailable Ruth Navarrete MD Unavailable [phone] Clare Coronado [facility] Unavailable [phone] Nikolai Martin MD Unavailable Allergies Active Allergy Reactions Criticality Noted Date Comments Adhesive Tape-Silicones Rash Medium 01/22/2019 Rash/ Paper tape is OK Doxycycline Rash Medium 01/22/2019 Reaction / red rash all over trunk Doxycycline Rash Medium 02/15/2025 Any medication in the cycline family Medications norgestimate-ethin yl estradioL (ORTHO-CYCLEN) 0.25-35 mg-mcg per tablet Take 1 tablet by mouth daily 28 tablet 12 04/30/20 21 Active Additional Information Patient taking differently:1 tablet oralNightly, Reported on 04/16/2022 venlafaxine XR (EFFEXOR-XR) 75 mg 24 hr capsuleIndications :Generalized Anxiety Disorder Take 75 mg by mouth nightly 03/01/20 22 Active ondansetron ODT (ZOFRAN-ODT) 4 mg disintegrating tablet Take 4 mg by mouth every 8 (eight) hours as needed for nausea 04/02/20 22 Active sucralfate (CARAFATE) 1 gram tablet Take 1 g by mouth 4 (four) times a day as needed 04/02/20 22 Active acetaminophen (TYLENOL) 500 mg tablet Take 1 tablet (500 mg total) by mouth every 6 (six) hours 30 tablet 04/16/20 22 Active polyethylene glycol (MIRALAX) 17 gram packetIndications: constipation Take 1 packet (17 g total) by mouth daily as needed for constipation 7 packet 04/16/20 22 Active prochlorperazine (COMPAZINE) 5 mg tablet Take 1 tablet (5 mg total) by mouth every 6 (six) hours as needed for nausea or vomiting 30 tablet 06/08/20 22 Active hydrOXYzine (ATARAX) 10 mg tablet Take 1 tablet (10 mg total) by mouth 3 (three) times a day as needed for itching 20 tablet 06/11/20 22 Active ibuprofen (ADVIL,MOTRIN) 800 mg tablet Take by mouth every 8 (eight) hours as needed 04/02/20 22 Active hydrOXYzine (ATARAX) 25 mg tablet Take 1 tablet (25 mg total) by mouth every 4 (four) hours as needed for itching 180 tablet 06/24/20 22 Active cholestyramine (QUESTRAN) 4 gram powder Take 1 packet (4 g total) by mouth 3 (three) times a day with meals 90 packet 07/01/20 22 Active venlafaxine XR (EFFEXOR-XR) 75 mg 24 hr capsule Take 1 capsule (75 mg total) by mouth daily 12/23/19 25 Active Ozempic 1 mg/dose (4 mg/3 mL) pen injector injection Inject 1 mg under the skin 02/08/20 25 Active fluticasone propionate (FLOVENT HFA) 110 mcg/actuation inhaler Inhale 1 puff 2 (two) times a day Rinse mouth with water after use. Do not swallow. 1 each 3 02/16/20 25 Active levalbuterol (XOPENEX HFA) 45 mcg/actuation inhaler Inhale 1-2 puffs every 4 (four) hours as needed for wheezing 1 each 3 02/16/20 25 Active Active Problems Problem Noted Date Diagnosed Date Cough 02/15/2025 Cholestasis 07/02/2022 Elevated LFTs 06/09/2022 Overview (06/09/2022): Added automatically from request for surgery [id number] Abdominal pain 06/09/2022 Overview (06/09/2022): Added automatically from request for surgery [id number] Calculus of gallbladder with out cholecystitis without obstruction 04/13/2022 Overview (04/13/2022): Added automatically from request for surgery [id number] Gestational hypertension, third trimester 2020 Encounter for induction of labor 03/06/2021 Overview (03/06/2021): 1. Induction of labor for gHTN: On OT now at 6, continue to uptitrate per protocol. S/p miso x1. AROM @1250. 2. FWB: Continuous monitoring. tracing category I 3. ID: HIV negative. GBS negative. Membrane Status: AROM @ 1250 03/06. 4. Indications for UDS: none. Verbal consent obtained for UDS: Not indicated 5. MOF: Plans to formula feed. 6. MOC: Desires BTL if C/S 7. Pain management: Epidural placed. 8. Post DVT prophylaxis: The patient has the following MAJOR risk factors none and the following MINOR risk factors age >/= 35. SCDs will be ordered for VTE prophylaxis . 9. COVID Test Status: Test sent on admission neg care following vaginal delivery 03/06 Overview (03/08/2021): # ID: Afebrile. No signs/symptoms of infection. COVID-19 negative. #3C laceration: s/p 1g cefoxitin. Continue bowel regimen. Perineal exam done prior to discharge. No concerns. # Heme: EBL 800 mL. Hemodynamically stable. No signs/symtpoms of acute blood loss anemia. # Rh status: Mom A positive # CV/Pulm: Gestational hypertension - SR blood pressures prior to delivery, MR on retake. Blood pressures persistently mild range in last 24 hours. blood pressures have ranged 127-148/70-92 over the last 24 hours with last blood pressure 127/71. Will start nifedipine 30mgXL today. Asymptomatic, denies GANDHI/RUQ pain/vision changes. CBC/CMP wnl, UPC 0.179. Consented for blood pressure monitoring. #PVCs- Patient has a history of PVCs diagnosed several years ago on Holter monitoring. Asymptomatic. Tachycardia improved- 98-112 over last 24 hours. Improving. # GI/: Tolerating PO. Voiding spontaneously. # Pain: Well controlled with pain medications. # Post DVT prophylaxis: The patient has the following MAJOR risk factors none and the following MINOR risk factors age >/= 35. SCDs ordered for VTE prophylaxis along with early ambulation. # MOC: declines, considering partner vasectomy. # MOF: Formula feeding # Mood:stable, bonding with baby # Anxiety: Not on any medications. # Endo: Subclinical hyperthyroidism- 01/2021 TSH [0.46] wnl , FT4 [0.9] and FT3 [3.1] # Disposition: Desires discharge home today. Will watch BPs today with start of nifedipine and discharge this afternoon. Stable for discharge. To schedule follow up appointment with: * [facility] - [facility] - [id number] [facility]. [place], [place] [address]Xryu to schedule an appointment in 1 and 6 weeks. Follow up task sent to [facility] scheduling pool. Prior to discharge she was consented and enrolled in [facility] remote blood pressure monitoring. She verified enrollment with receipt of text message and reply of yes. She was provided with home blood pressure monitoring kit for continued home monitoring of her blood pressures and instructed on its use. Her AVS summary has been updated with the discharge instructions on the use of the remote blood pressure monitoring system. Symptoms of preeclampsia have been reviewed. Elevated BP without diagnosis of hypertension Overview (03/05/2021): 130/92 x1 in office. Pt has sporadically checked at work this week and normal systolic values, unsure about diastolic. She did have headache yesterday but resolved. Swelling in LE is stable. Had some vomiting and diarrhea yesterday. Reviewed preeclampsia precautions. Will start daily BP checks, reviewed parameters. Check PIH labs today. Seasonal allergies 01/28/2021 Overview (02/11/2021): - Related to Pollen - initiated anti-histamine 01/28/2021 Heartburn during in third trimester Overview (01/28/2021): - Rx prilosec - Reports significant improvement 01/28/2021 Dyspnea and palpitations 01/08/2021 Overview (02/25/2021): Patient has a history of PVCs diagnosed several years ago on Holter monitoring. Unremarkable auscultation today and pulse is 105 with normal O2 sats. Palpitations during . - Expanded workup for mild anemia with ferritin [19] - Iron BID , B12, and folate levels. Consider Hgb electrophoresis if normal. - BNP [19] - 01/08- EKG - With possible left atrial enlargement. - TTE - 01/21 normal (left atrium normal in size) - Holter 01/21 wnl except mild tachycardia Symptoms stable and have not worsened. Assessment & Plan (01/21/2021 8:51 PM CDT): Today reports continued symptoms of dyspnea and orthopnea. States got worse since finding out ECG was abnormal. Reviewed that borderline findings and TTE today will serve to differentiate whether any atrial enlargement trully exists. Holter monitor also still pending GERD symptoms do appear to be a significant contributor to symptoms. Prior to , had relief with Omeprazole. During , has been taking Pepcid without any relief. Discussed that different mechanisms and will try omeprazole now to see if any improvement in symptoms. Return in 1-2 weeks to review symptoms and discuss Holter results once complete. Subclinical hyperthyroidism 01/07/2021 Overview (03/05/2021): TFTs checked due to patient report of palpitations and SOB. TSH 0.279, T4 0.94 (normal). Labs are consistent with subclinical hyperthyroidism Previously counseled Patient c/o increase palpitation and had Holter placed 01/21/21 that was unremarkable (No evidence any ectopy, arrhythmias, or conduction system disease; notable for a relatively tachycardic heart rate average of 106 with range 69-136) however there is appropriate heart rate variability and this is not necessarily considered abnormal. 01/28/2021 TSH [0.55] , FT4 [0.82] and FT3 [2.9] 02/04/21 TSH [0.46] , FT4 [0.9] and FT3 [3.1] Check TRab AMA (advanced maternal age) multigravida 35+, unspecified trimester 01/07/2021 Overview (02/25/2021): Low risk NIPT; previously counseled. Supervision of high-risk , unspecified trimester 01/07/2021 Overview (02/27/2021): [x] Full MFM Care; [] Red Team [x] Blue Team Referring Provider: Clare Patel [phone] [x] Dating Criteria: US with ADIS 03/27/21 [x] Labs: Rh [A+], Ab [negative], Rubella [immune], HIV [non-reactive], HepBSAg [non-reactive], RPR [non-reactive], GC/CT [negative/negative] [x] Genetic Screenin09/17/20: NIPT low risk [x] CBC/Hgb 13.5/39.6/plt 337 [] Early 1hr GTT (if indicated) [x] UCx: 07/28/20 no growth [x] Pap: 07/28/20: NILM; HPV negative [] LD ASA (if indicated) starting at 12 weeks: [] EPDS [ ]; PNBHS referral (if indicated) 2nd Tri Labs: [x] Anatomy ultrasound:Normal with primary OB. Incomplete with MFM given advanced gestation [x] CBC/1hr gtt at 24-28wks: 12/31/20: 10.8/33.0/plt 314; Elevated 1 hr, normal 3hr [x] Flu Shot (Jun-Sep):07/18/20 [x] Tdap (27-36wks): at [facility] 01/2021 3rd Tri Labs: [x] CBC [10.3/30/288K] /HIV [NR] /RPR [NR] [x] GBS: 02/25/2021 Negative [] GC/CT (if indicated): [] COVID testing ordered 02/25/2021 Counselling [x] MOD: Plan , but very anxious and has always wanted a PCS. Counseled 02/25/2021. For IOL at 39 wks, patient would like a CS to be called earlier rather than later if headed in that direction. IOL SCHEDULED 03/20/21 @ 0800 [x] Place of delivery: [facility] [x] MOC: Desires tubal ligation due to anxiety, inability to take medications, and age. Declines LARC. Counseled at length 02/25/2021. Booked with BTL. [x] Method of feeding: Would like to restart pristiq and does not want to breastfeed on this medication due to limited information available. Also concerned regarding anxiety and . Counseled at length 02/25/2021. Plans formula feeding. [x] Agency Recruiter: Discussed 02/25/2021 [x] PP Depression Discussed: Discussed increased risk, given anxiety 02/25/2021. Patient to followup with mental health provider before or within 1-2 weeks to touch base and restart medications. GERD (gastroesophageal reflux disease) 0 PVC (premature ventricular contraction) 07/18/20 20 Annual physical exam 08/14/2019 Assessment & Plan (08/14/2019 2:24 PM CDT): Tdap- 08/14/19 Flu- 08/14/19 PAP- 04/2018 normal, see's HOUSE ADMIN Exercise 5 days a week, 30 mins per day recommended. Eat a heart healthy diet consisting of good, healthy protein (eggs, nuts, peanut butter, chicken, fish, turkey, less pork/beef), lots of vegetables, less carbohydrates and less sugar. Annual physical recommended. Status post breast lumpectomy 08/14/2019 Assessment & Plan (08/14/2019 2:26 PM CDT): Continue 6 month checks with breast surgeon, patient is high risk for developing breast cancer Patellofemoral arthralgia of both knees 06/06/20 19 Assessment & Plan (08/14/2019 2:24 PM CDT): Continue exercises, helping significantly Assessment & Plan (06/06/2019 11:16 AM CDT): Strengthen the VMO / medial muscles of the knee and stretch the lateral thigh muscles and IT band Ice daily after exercises Exercises demonstrated in the office Therapy is required to fix this Do not sit cross legged All Qs answered NSAIDs are ok, but no more than 800mg ibuprofen at a time All Qs answered If exercises do not help will refer to ortho Anxiety 05/19/2018 Overview (03/05/2021): Patient reports mood was previously well controlled with desvenlafaxine which she has weaned off of in . Previously counseled regarding risks/benefits of medications versus uncontrolled maternal disease. PLAN: -Address mood q visit-doing well 02/25/2021. Have reviewed peripartum followup with mental health provider and restarting medications . Assessment & Plan (08/14/2019 2:25 PM CDT): Doing well on Pristiq, would like to continue. Does not experience sexual side effects on this medication. Tension headache 12/29/2017 Essential tremor 03/10/2017 Attention deficit hyperactiv ity disorder (ADHD), combined type 12/08/2016 Basal cell carcinoma 10/05/2016 Overview (06/06/2019): left latter-day, removed 2007 Anxiety 11/06/2013 Encounters Date Type Department Care Team Description 02/15/2025 1:30 PM CDT Office Visit [facility] Pulmonary [address] [facility] [address] [place] [address] Wilmer Ortiz Jr., MD Cough, unspecified type; SOBOE (shortness of breath on exertion) 02/15/2025 12:00 PM CDT - 02/15/2025 11:59 PM CDT Hospital Encounter [facility] [address] [address] [address] Cough, unspecified type Discharge Disposition: Discharge to home or self care 02/15/2025 10:00 AM CDT - 02/15/2025 11:59 PM CDT Hospital Encounter [facility] PFT Lab [address] Medical Office [address] [place] [address] Cough, unspecified type Discharge Disposition: Discharge to home or self care 02/07/2025 Orders Only [facility] Scheduling [address] [place] [address] Case, Wilmer Wren Jr., MD Cough, unspecified type (Primary Dx) from Last 3 Months Immunizations Immunization Administration Dates Next Due Influenza, Quadrivalent, Spl it, Preservative Free, Intramuscular 07/18/2020,08/14/2019,09/04/2018 Influenza, Trivalent, IM (MDV) 07/06/2017 Influenza, Trivalent, Preser vative Free, Intramuscular 08/27/2016 Influenza, Unspecified 07/06/2017 Tdap 08/14/2019 Surgical History Surgery Date Site/Laterality Comments DILATION AND CURETTAGE OF UTERUS BREAST LUMPECTOMY CHOLECYSTECTOMY ERCP HYSTERECTOMY 10/17/2024 - 10/16/2025 CHOLECYSTECTOMY 10/17/2022 - 10/16/2023 COMBINED ABDOMINOPLASTY AND LIPOSUCTION 10/17/2020 - 10/16/2021 MUSCLE REPAIR 10/17/2020 - 10/16/2021 Breast Implants Medical History Medical History Date Comments Basal cell carcinoma Difficulty concentrating Axillary hyperhidrosis ADHD (attention deficit hyperactivity disorder) Anxiety Benign essential tremor Neutrophilia Headache Depression Delayed emergence from general anesthesia GERD (gastroesophageal reflux disease) Kidney stone Elevated bilirubin Skin cancer 2008 Bronchitis Family History Medical History Relation Name Comments Back Pain Father Colon polyps Father Cancer Maternal Grandfather Cancer Maternal Grandmother Breast cancer Mother Cancer Mother Cancer Paternal Grandfather defects Paternal Grandmother Stroke Paternal Grandmother Relation Name Status Comments Father Alive Maternal Grandfather Maternal Grandmother Mother Alive Paternal Grandfather Alive Paternal Grandmother Alive Social History Tobacco Use Types Packs/Day Years Used Date Smoking Tobacco: Former Cigarettes Q uit: 2016 Smokeless Tobacco: Never Tobacco Cessation:Counseling Given: Not Answered Alcohol Use Standard Drinks/Week Comments Yes 0 (1 standard drink = 0.6 oz pur e alcohol) Socially AUDIT-C Answer Date Recorded Frequency of Alcohol Consumption Not on file 02/15/2025 Q2: How many drinks containi ng alcohol do you have on a typical day when you are drinking? Patient does not drink Frequency of Binge Drinking Not on file 11/2024 PHQ-2 Answer Date Recorded PHQ-2 Score 0 07/12/2019 [place] Depression Scale Answer Date Recorded [place] Depression Scale Total 1 04/30/2021 The thought of harming myself has occurred to me . Never 04/30/2021 Comments No Sex and Gender Information Value Date Recorded Sex Assigned at Not on file Legal Sex Female 9:09 PM TRANSPORT AIDE Gender Identity Female 02/04/2021 10:00 AM CDT Sexual Orientation Straight 02/04/2021 10 :00 AM CDT Obstetrics History Para Term AB IAB SAB Ectopic Multiple Livin g Live Births 2 1 1 0 1 0 1 0 1 1 Date Outcome GA Total Labor Labor/2nd/3rd Weight Sex Type Anes PTL Lydia A1 A5 Name Clin 2019 SAB 6w0 d 2020 Term 37w 0d 0h 02m 0h 02m 2.79 kg (6 lb 2.4 oz) M Vag-F orcep s Epidur al N Livin g 7 9 SVETLANA, BOYJE MARIBEL vallejo, Maryjane knight MD Complications: Intolera nce Delivery Location:[facility] ([facility]) Last Filed Vital Signs Vital Sign Reading Time Taken Comments Blood Pressure 126/82 02/15/2025 1:44 PM CDT Pulse 97 02/15/2025 1:44 PM CDT Temperature 36.9 C (98.4 F) 02/15/2025 1:44 PM CDT Respiratory Rate 18 07/01/2022 3:41 PM CDT Oxygen Saturation 97% 02/15/2025 1:44 PM CDT Inhaled Oxygen Concentration - - Weight 57.2 kg (126 lb) 02/15/2025 1:44 PM CDT Height 156.2 cm (5' 1.5) 02/15/2025 1:44 PM CDT Body Mass Index 23.42 02/15/2025 1:44 PM CDT Plan of Treatment Health Maintenance Due Date Last Done Comments Hepatitis C Screening 1982 Varicella Vaccines (1 of 2 - 13+ 2-dose series) 1995 Hepatitis B Screening 2000 Breast Cancer Screening-Mammogram 05/11/2020 05/11/2019, 05/08/2018 Regular Well Visit/Exam 18-64 08/14/2020 08/14/2019 Depression Screening 04/30/2022 04/30/2021, 07/12/20 19 Covid-19 Vaccine (3 - season) 2024 06/04/2021, 05/14/2021 Influenza Vaccine (#1) 2025 , 07/21/2023, 08/12/2022, Additional history exists DTaP/Tdap/Td Vaccine (3 - Td or Tdap) 01/12/2031 01/12/2021, 08/14/2019 HPV Vaccines Aged Out No longer eligi ble based on patient's age to complete this topic Pneumococcal vaccine <65 Aged Out No longer eligible based on patient's age to complete this topic Medical Devices Explanted Type Area Cost Coordinator Device Identifier Shelf Expiration Date Model / Serial / Lot [employer] 10fr 5cm Biliary Stent [id number] - [id number] Implanted:Qty: 1 on 06/09/2022 by Mirza Wang MD at [facility] Explanted:Qty: 1 on 06/23/2022 by Kemar Schneider MD at [facility] Stent N/A: Bile Duct [employer] 04/05/2024 [id number] / / [id number] Procedures Procedure Name Priority Date/Time Associated Diagnosis Comments XR CHEST PA LATERAL 2 VIEWS Schedule Routine, Read Routine (OP Routine) 02/15/2025 12:11 PM CDT Cough, unspecified type PULMONARY FUNCTION TEST (PFT) Routine 02/15/2025 11:48 AM CDT Cough, unspecified type SCREENING MAMMOGRAM BILATERAL W VISHAL 05/11/2019 9:01 AM CDT from Last 3 Months or Most Recently Relevant to Health Maintenance Results * XR Chest Pa Lateral 2 Views (02/15/2025 12:11 PM CDT) Anatomical Region Laterality Modality Body, Chest N/A Computed Radiogr aphy 02/15/2025 12:1 9 PM CDT Impressions 02/15/2025 12:19 PM CDT There are no comparison chest radiographs. Heart size is normal. Lungs are clear. Electronically signed by: Nikolai Rapp M.D. Narrative 02/15/2025 12:19 PM CDT EXAMINATION: 2 view chest radiograph Procedure Note Nikolai Rapp MD - 02/15/2025 EXAMINATION: 2 view chest radiograph IMPRESSION: There are no comparison chest radiographs. Heart size is normal. Lungs are clear. Electronically signed by: Nikolai Rapp M.D. us Wilmer Ortiz Jr., MD IMG XR PROCEDURES Final Result * Pulmonary Function Test - (02/15/2025 11:48 AM CDT) FVC PRE 3.45 L [facility] FVC %PRE PRED 103 % [facility] FVC POST 3.33 L [facility] FVC %POST PRED 100 % [facility] FEV1 PRE 2.78 L [facility] FEV1 %PRE PRED 102 % [facility] FEV1 POST 2.79 L [facility] FEV1 %POST PRED 102 % [facility] FEV1/FVC PRE 80.6 % [facility] FEV1/FVC POST 83.8 % [facility] FRC [address] PRE 2.[address] [facility] FRC PL %PRE PRED 97 % [facility] RV PRE 1.84 L [facility] RV %PRE PRED 121 % [facility] TLC PRE 5.21 L [facility] TLC %PRE PRED 111 % [facility] DLCO PRE 18.7 ml/min/mmH g [facility] DLCO %PRE PRED 93 % [facility] Anatomical Region Laterality Modality PFT 02/15/2025 10:1 7 AM CDT Narrative 02/18/2025 9:33 AM CDT Table formatting from the original result was not included. [facility] Division of Pulmonary & Critical Care Medicine [address] [place] [address]; [place] [address]; [place] [address]; [phone] Pulmonary Function Laboratory Pulmonary Stress Test Simple/Oxygen Assessment Patient: Yazmin Conrad Date: 02/15/2025 : 1980 Ht: 61.5 IN Wt: 126 LBS Time (min) Distance (ft)/ Ellison O2 L/M SpO2 HR Adeola* BP FEV1 % Pred Rest: RA 100 91 1 119/83 2.78 102 % Walk/Bike: 1 RA 99 106 2 2 RA 100 111 3 3 RA 99 112 4 4 RA 100 109 4 5 RA 10 108 4 6 min 0 sec RA 100 101 4 Recovery: 1 RA 100 95 3 129/80 2.68 98% 3 RA 100 105 2 *Adeola rate of perceived exertion (1-10 dyspnea scale) Moises, CHEST 2003; 123:1408 Walk Test Summary: Six Minute Walk Distance: 950 ft Six-minute Walk Work [distance (m) x body wt (kg)]: 75342 kg.m (normal >60,000kg.m) Oxygen required to maintain SpO2 greater than 90% during six minutes of walkin L/M Comments: O2A Interpretation: Breathing room air, SpO2 is normal at rest and during exercise sufficient to increase pulse, SpO2 is stable. On this basis, SpO2 is adequate at rest breathing room air and while walking breathing room air. This level of exercise is associated with no significant change of FEV1. By signing this report, the attending pulmonary physician certifies that he/she has personally reviewed and interpreted the graphic and numerical data associated with this pulmonary function study and has reviewed and /or edited a preliminary draft report and agrees with the written final report. PFT performed at:->[facility] Adult PFT Lab- [facility] Procedure:->Oxygen Assessment Titration Procedure:->Spirometry Procedure:->Spirometry with Bronchodilator Procedure:->Lung Volumes Procedure:->ABG with Co-oximetry Procedure:->DLCO Lung Volumes via:->Pleth with Airway Resistance DLCO:->Spirometry Air Type:->Room Air Pulmonary Function Test Interpretation SPIROMETRY: Spirometry is normal. There is no significant improvement after inhaling a single dose of albuterol. The inspiratory loop is normal. LUNG VOLUMES: TLC measured by plethysmography is normal. DLCO: The diffusing capacity is normal. Impression: There is no significant ventilatory defect. There is no impairment of alveolar gas exchange by DLCO. The attending pulmonary physician certifies a physician presence in the [facility] Suite during the administration of aerosolized bronchodilator. The attending pulmonary physician certifies that he/she has reviewed and interpreted the graphic and numerical data of this pulmonary function study and agrees with the written final report. The lower limit of normal for PaO2 and %HbO2 is age dependent. However, the [facility] Pulmonary Function Laboratory defines hypoxemia as a PaO2 <56 mm Hg or a %HbO2 <89%. Starting on October of 2024 the [facility] Pulmonary Function Laboratory utilizes race neutral GLI Global normative equations. us Wilmer Ortiz Jr., MD PFT ORDERABLES Fi nal Result * Screening Mammogram Bilateral W Vishal (05/11/2019 9:01 AM CDT) Anatomical Region Laterality Modality Breast Bilateral Mammography 05/11/2019 9:06 AM CDT Narrative 05/11/2019 9:32 AM CDT Patient Name: YAZMIN MOTA Dr: Dionte Salomon MD D.O.B: 1980 Exam Date: 05/11/19900 Age: 38 Sex: Female MR#: [id number] Loc: RADIOLOGY REPORT Order #[id number] [facility] Luis Bilat Screening 3D Signed - MG BILATERAL DIGITAL SCREENING MAMMOGRAM 3D/2D WITH MEDIOLATERAL OBLIQUE CRANIOCAUDAL: 05/11/2019 The study was acquired using full field digital technology and interpreted from soft copy. 2D digital mammographic views, as well as 3D digital tomosynthesis were performed in the CC and MLO projections. CLINICAL: Routine mammogram. Patient denies any problems. Mother (age 58) and maternal grandmother with breast cancer. No personal history of breast cancer. COMPARISONS: Comparison is made to exams dated: 05/08/2018 mammogram - [facility] and 05/05/2017 mammogram - [facility]. BREAST TISSUE: The tissue of both breasts is extremely dense, which lowers the sensitivity of mammography. FINDINGS: No significant masses, calcifications, or other findings are seen in either breast. There has been no significant interval change. IMPRESSION: BI-RAD 1 NEGATIVE There is no mammographic evidence of malignancy. A 1 year screening mammogram is recommended. The patient has been or will be contacted. We recommend annual screening mammography for women at average risk of breast cancer beginning at age 40, based on guidelines of the [place] [employer] (ACR Practice Parameter for the Performance of Screening and Diagnostic Mammography) and [place] [employer]. For women with an elevated risk of breast cancer, please refer to the ACR Practice Parameter for specific screening recommendations. The patient will be entered into a reminder system with a target due date of age 40 for her next mammogram, unless otherwise warranted by the [place] Practice Parameter for the Performance of Screening and Diagnostic Mammography. Electronically signed by: Eric Jimenez M.D., md/aubrey:05/11/2019 09:32:22 Outside Plant Supervisor: Peace RENTERIA (R)(M), [facility] letter sent: Normal Exam Reading location: [facility] BI-RADS: 1 Negative REPORT ELECTRONICALLY SIGNED IN OTHER VENDOR SYSTEM Resulting Agency Comment O Procedure Note Eric Jimenez MD - 05/11/2019 Patient Name: YAZMIN MOTAcharbel Dr: Dionte Salomon MD D.O.B: 1980 Exam Date: 07/900 Age: 38 Sex: Female MR#: [id number] Loc: RADIOLOGY REPORT Order #[id number] [facility] Luis Bilat Screening 3D Signed - MG BILATERAL DIGITAL SCREENING MAMMOGRAM 3D/2D WITH MEDIOLATERAL OBLIQUE CRANIOCAUDAL: 05/11/2019 The study was acquired using full field digital technology andinterpreted from soft copy. 2D digital mammographic views, as well as 3D digital tomosynthesis were performed in the CC and MLO projections. CLINICAL: Routine mammogram. Patient denies any problems. Mother (age 58)and maternal grandmother with breast cancer. No personal history of breastcancer. COMPARISONS: Comparison is made to exams dated: 05/08/2018 mammogram -[facility] and 05/05/2017 mammogram - [facility]. BREAST TISSUE: The tissue of both breasts is extremely dense, whichlowers the sensitivity of mammography. FINDINGS: No significant masses, calcifications, or other findings areseen in either breast. There has been no significant interval change. IMPRESSION: BI-RAD 1 NEGATIVE There is no mammographic evidence of malignancy. A 1 year screeningmammogram is recommended. The patient has been or will be contacted. We recommend annual screening mammography for women at average risk ofbreast cancer beginning at age 40, based on guidelines of the [employer] [employer] (ACR Practice Parameter for the Performance of Screening and Diagnostic Mammography) and [employer]. For women with an elevated risk of breast cancer, pleaserefer to the ACR Practice Parameter for specific screening recommendations. The patient will be entered into a reminder system with a target due dateof age 40 for her next mammogram, unless otherwise warranted by the [employer] Practice Parameter for the Performance of Screeningand Diagnostic Mammography. Electronically signed by: Eric Jimenez M.D., md/aubrey:05/11/2019 09:32:22 Outside Plant Supervisor: Peace Hussein RT (R)(M), [facility] letter sent: Normal Exam Reading location: [facility] BI-RADS: 1 Negative REPORT ELECTRONICALLY SIGNED IN OTHER VENDOR SYSTEM Dionte Salomon MD IMG MAMMO PROCEDURES Final Result from Last 3 Months or Most Recently Relevant to Health Maintenance Insurance BL CHOICE PRF [place] [employer] [place] Advance Directives For more information, please contact: [phone] * Full Code (Latest Code Status on File) Date Activated Date Inactivated Comments 06/23/2022 12:09 PM 06/23/2022 8:08 PM * Full Code Date Activated Date Inactivated Comments 06/09/2022 2:04 PM 06/09/2022 10:03 PM * Full Code Date Activated Date Inactivated Comments 03/06/2021 7:09 PM 03/08/2021 6:46 PM * Full Code Date Activated Date Inactivated Comments 03/06/2021 2:53 AM 03/06/2021 7:09 PM Full CPR in case of cardiopulmonary arrest Care Teams Computerized Mill Recorder Relationship Specialty Start Date End Date Lo Jay NP [address] [place] [address] PCP - General Family Medicine 02/15/25 Jaiden Quigley MD [address] [place] [address] 02/15/25 Ruth Navarrete MD [address] [place] [address] Consulting Physician Family Medicine 06/06/19 Clare Coronado CNM [address] [place] [address] Nurse Practitioner Midwifery 01/07/21 Nikolai Martin MD [address] [place] [address] Consulting Physician General Surgery 04/16/22
--- OUTSIDE RECORDS SUMMARY | 2025-05-09 12:19 | XMS_ITS | Encounter Summary ---
Author Organization [facility] Address [address] [facility] [address] [place] [address] Care Team Providers Care Fryer Line Helper Name Role Phone Unavailable Primary Care Provider Unavailabl e Encounter Details Date Type Department Care Team (Late st Contact Info) Description 09/15/2023 Lab Requisition [facility] - DermPath Lab [address], [place] [id number] Jayy Davis MD [address] [address] [place] [address] Social History Tobacco Use Types Packs/Day Years Used Date Smoking Tobacco: Never Assessed Comments Unknown Sex and Gender Information Value Date Recorded Sex Assigned at Not on file Legal Sex Female 8:21 AM CDT Gender Identity Not on file Sexual Orientation Not on file documented as of this encounter Plan of Treatment Not on file documented as of this encounter Procedures Procedure Name Priority Date/Time Associated Diagnosis Comments DERMATOPATHOLOGY Routine 09/15/2023 12:0 0 AM TRUCK SPOTTER documented in this encounter Results * DERMATOPATHOLOGY (09/15/2023 12:00 AM TRUCK SPOTTER) Case Report Dermatopathology Report Case: [id number] Authorizing Provider: Jayy Davis MD Collected: 09/15/2023 12:00 AM Ordering Location: [facility] DermPath Lab Received: 09/16/2023 06:35 AM Pathologist: Kaylin Whitaker MD Specimen: Skin, right shoulder 4:23 PM [facility] DERMATOPATHOLOGY LABORATORY Final Diagnosis Specimen A. SKIN, right shoulder: DERMAL FIBROSIS AND FIBROADIPOSE TISSUE (L90.5) (see microscopic description) 3 4:23 PM [facility] DERMATOPATHOLOGY LABORATORY at [address] TR[address] SPOTTER Clinical History CYST, Check Margin and Prior Biopsy, Path$ [id number] 3 4:23 PM [facility] DERMATOPATHOLOGY LABORATORY Gross Description Specimen A: Received is one formalin filled container labeled with the patient's name and designated right shoulder. The specimen consists of a piece of skin measuring 7x4x10, 7x4x1, 7x4x1 mm. The margin is inked green. The specimen is bisected lengthwise and submitted in 1 cassette. Jar 0. 3 4:23 PM [facility] DERMATOPATHOLOGY LABORATORY Microscopic Description Specimen A. SKIN, right shoulder: The epidermis is unremarkable. There is focal dermal fibrosis and fibroadipose tissue identified. Cyst is not present in the sections examined. Additional deeper sections were obtained and reviewed. 3 4:23 PM [facility] DERMATOPATHOLOGY LABORATORY Disclaimer An external and internal positive and negative controls are appropriate for the histochemical, immunohistochemical and immunofluorescence stain(s) in this case (if any), except where stated explicitly. The performance characteristics of the stain(s) cited in this report were developed and its performance characteristic determined by the Dermatopathology Laboratory at [facility], directed by Dr. Skylar Vale. These tests need not be, and therefore are not, approved by the [place] Food and Drug Administration. The tests are used for clinical purposes. Billing Codes Specimen Charges Stain Charges 89724 1 3 4:23 PM [facility] DERMATOPATHOLOGY LABORATORY Embedded Images 3 4:23 PM [facility] DERMATOPATHOLOGY LABORATORY Pathology/Cytolog y TISSUE SPECIMEN FROM SKIN / Unknown 09/15/2023 09/16/2023 6:35 AM [facility] us Jayy Davis MD LAB - PATHOLOGY/CYTOLOGY ORDER ECTOR Final Result DERMATOPATHOLOGY LABORATORY [facility] - Department of Dermatology [address], [address] [phone] documented in this encounter Visit Diagnoses Not on filedocumented in this encounter
--- OUTSIDE RECORDS SUMMARY | 2025-05-09 12:19 | XMS_ITS | Referral Summary ---
Author Organization [facility] Address [address] [place] [address] Care Team Providers Care Tabber Name Role Phone Lo Jay NP Primary Care Provider Jaiden Quigley MD Unavailable Ruth Navarrete MD Unavailable [phone] Clare Coronado [facility] Unavailable [phone] Nikolai Martin MD Unavailable Encounters Date Type Department Care Team Description 02/15/2025 12:00 PM CDT - 02/15/2025 11:59 PM CDT Hospital Encounter [facility] [address] [place] [place] [address] Cough, unspecified type Discharge Disposition: Discharge to home or self care 02/15/2025 1:30 PM CDT Office Visit [facility] Pulmonary [address] [facility] [address] [place] [address] Wilmer Ortiz Jr., MD Cough, unspecified type; SOBOE (shortness of breath on exertion) 02/15/2025 10:00 AM CDT - 02/15/2025 11:59 PM CDT Hospital Encounter [facility] PFT Lab [address] [place] [address] [address] [place] [address] Cough, unspecified type Discharge Disposition: Discharge to home or self care 02/07/2025 Orders Only [facility] Scheduling [address] [place] [address] Case, Wilmer Wren Jr., MD Cough, unspecified type (Primary Dx) from Last 3 Months Allergies Active Allergy Reactions Criticality Noted Date [...] as needed for itching 180 tablet 06/24/20 Active cholestyramine (QUESTRAN) 4 gram powder Take 1 packet (4 g total) by mouth 3 (three) times a day with meals 90 packet 07/01/20 Active venlafaxine XR (EFFEXOR-XR) 75 mg 24 [...] (06/09/2022): Added automatically from request for surgery [id number] Abdominal pain 06/09/2022 Overview (06/09/2022): Added automatically from request for surgery [id number] Calculus of gallbladder with out cholecystitis without obstruction 04/13/2022 Overview (04/13/2022): Added automatically from request for surgery [id number] Gestational hypertension, third trimester 2020 Encounter for [...] appointment with: * [facility]) - [facility] MED[facility]INE - [id number] [place], [place] [address]Cjym to schedule an appointment in 1 and 6 weeks. Follow up task sent to [facility] scheduling pool. Prior to discharge she was consented and enrolled in [facility] remote blood pressure monitoring. She verified enrollment [...] unspecified trimester 01/07/2021 Overview (02/27/2021): [x] Full M Care; [] Red Team [x] Blue Team Referring Provider: Clare Patel [phone] [x] Dating Criteria: [place] with ADIS 03/27/21 [...] Flu Shot (Jun-Sep):07/18/20 [x] Tdap (27-36wks): at [facility] 01/2021 3rd Tri Labs: [x] CBC [...] at length 02/25/2021. Plans formula feeding. [x] Political Organizer: Discussed 02/25/2021 [x] PP Depression Discussed: Discussed increased risk, given anxiety 02/25/2021. Patient to followup with mental health provider before or within 1-2 weeks to touch base and restart medications. 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 Exercise 5 days a week, 30 mins [...] Basal cell carcinoma 10/05/2016 Overview (06/06/2019): left mandaeism, removed 2007 Anxiety 11/06/2013 Immunizations Immunization Administration Dates Next Due Influenza, Quadrivalent, Spl it, Preservative Free, Intramuscular 07/18/2020,08/14/2019,09/04/2018 Influenza, Trivalent, IM (MDV) 07/06/2017 Influenza, Trivalent, Preser vative Free, Intramuscular 08/27/2016 Influenza, Unspecified 07/06/2017 Tdap 08/14/2019 Social History Tobacco Use Types Packs/Day Years Used Date Smoking Tobacco: Former Cigarettes Q uit: 2015 Smokeless Tobacco: Never Tobacco Cessation:Counseling Given: Not [...] Answer Date Recorded PHQ-2 Score 0 07/12/2019 [place] Depression Scale Answer Date Recorded [place] Depression Scale Total 1 04/30/2021 The thought of harming myself has occurred to me . 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 Gender Identity Female 02/04/2021 10:00 AM CDT Sexual Orientation Straight 02/04/2021 10 :00 AM CDT Last Filed Vital Signs Vital Sign Reading [...] 02/15/2025 1:44 PM CDT Plan of Treatment Not on file Medical Devices Explanted Type Area Helper Driver Device Identifier Shelf Expiration Date Model / Serial / Lot [employer] Jose 10fr 5cm Biliary Stent [id number] - [id number] Implanted:Qty: 1 on 06/09/2022 by Mirza Wang MD at [facility] Explanted:Qty: 1 on 06/23/2022 by Kemar Schneider MD at [facility] Stent N/A: Bile Duct [employer] Jose 04/05/2024 [id number] / / [id number] Procedures Procedure Name Priority Date/Time Associated Diagnosis [...] 11:48 AM CDT) FVC PRE 3.45 L [facility] FVC %PRE PRED 103 % [facility] FVC POST 3.33 L [facility] FVC %POST PRED 100 % [facility] FEV1 PRE 2.78 L [facility] FEV1 %PRE PRED 102 % [facility] FEV1 POST 2.79 L [facility] FEV1 %POST PRED 102 % [facility] FEV1/FVC PRE 80.6 % [facility] FEV1/FVC POST 83.8 % [facility] FRC PL PRE 2.[address] [facility] FRC [address] %PRE PRED 97 % [facility] RV PRE 1.84 L [facility] RV %PRE PRED 121 % [facility] TLC PRE 5.21 L [facility] TLC %PRE PRED 111 % [facility] DLCO PRE 18.7 ml/min/mmH g [facility] DLCO %PRE PRED 93 % [facility] Anatomical Region Laterality Modality PFT 02/15/2025 10:1 7 AM CDT Narrative 02/18/2025 9:33 AM CDT Table formatting from the original result was not included. [facility] Division of Pulmonary & Critical Care Medicine [address] [place] [address]; [address] [address] [facility]; [place] [address]; [phone] Pulmonary Function Laboratory Pulmonary Stress Test Simple/Oxygen [...] Work [distance (m) x body wt (kg)]: 02229 kg.m (normal >60,000kg.m) Oxygen required to maintain [...] with the written final report. PFT performed at:->[facility] Adult PFT Lab- [facility] Procedure:->Oxygen Assessment Titration Procedure:->Spirometry Procedure:->Spirometry with [...] and %HbO2 is age dependent. However, the [facility] Pulmonary Function Laboratory defines hypoxemia as a PaO2 <56 mm Hg or a %HbO2 <89%. Starting on October of 2024 the [facility] Pulmonary Function Laboratory utilizes race neutral GLI Global normative equations. Wilmer Ortiz Jr., MD PFT ORDERABLES Fi nal Result * Screening Mammogram Bilateral W Vishal (05/11/2019 9:01 AM CDT) Anatomical Region Laterality Modality Breast Bilateral Mammography 05/11/2019 9:06 AM CDT Narrative 05/11/2019 9:32 AM CDT Patient Name: YAZMIN MOTA Ordering Dr: Dionte Salomon MD D.O.B: 1980 Exam Date: 05/11/19900 Age: 38 Sex: Female MR#: [id number] Loc: RADIOLOGY REPORT Order #[id number] [facility] Luis Bilat Screening 3D Signed - MG [...] made to exams dated: 05/08/2018 mammogram - [facility] and 05/05/2017 mammogram - [facility]. BREAST TISSUE: The tissue of both breasts [...] age 40, based on guidelines of the [place] [employer] (ACR Practice Parameter for the Performance of Screening and Diagnostic Mammography) and [place] [employer]. For women with an elevated risk of breast cancer, please refer to the ACR Practice Parameter for specific screening recommendations. The patient will be entered into a reminder system with a target due date of age 42 for her next mammogram, unless otherwise warranted by the [place] [employer] Practice Parameter for the Performance of Screening and Diagnostic Mammography. Electronically signed by: Eric Jimenez M.D., md/aubrey:05/11/2019 09:32:22 Book Packer: Peace Hussein RT (R)(M), [facility] letter sent: Normal Exam Reading location: [facility] BI-RADS: 1 Negative REPORT ELECTRONICALLY SIGNED IN OTHER VENDOR SYSTEM Resulting Agency Comment O Procedure Note Eric Jimenez MD - 05/11/2019 Patient Name: YAZMIN MOTA Dr: Dionte Salomon MD D.O.B: 1980 Exam Date: 05/11/19 09 Age: 38 Sex: Female MR#: [id number] Loc: RADIOLOGY REPORT Order #[id number] [facility] Luis Bilat Screening 3D Signed - MG [...] is made to exams dated: 05/08/2018 [facility] and 05/05/2017 mammogram - [facility]. BREAST TISSUE: The tissue of both breasts [...] age 40, based on guidelines of the [place] [employer] (ACR Practice Parameter for the Performance of Screening and Diagnostic Mammography) and [place] [employer]. For women with an elevated risk of breast cancer, pleaserefer to the ACR Practice Parameter for specific screening recommendations. The patient will be entered into a reminder system with a target due dateof age 40 for her next mammogram, unless otherwise warranted by the [place] [employer] Practice Parameter for the Performance of Screeningand Diagnostic Mammography. Electronically signed by: Eric Jimenez M.D., md/aubrey:05/11/2019 09:32:22 Book Packer: Peace Hussein RT (R)(M), [facility] letter sent: Normal Exam Reading location: [facility] BI-RADS: 1 Negative REPORT ELECTRONICALLY SIGNED IN OTHER VENDOR SYSTEM Dionte Salomon MD IMG MAMMO PROCEDURES Final Result from Last 3 Months or Most Recently Relevant to Health Maintenance Insurance BL CHOICE PRF PPO HI BLUE ACCESS HI BLUE ACCESS HI BLUE ACCESS HI BLUE ACCESS [place] Advance Directives For more information, please contact: [phone] * Full Code (Latest Code Status on [...] in case of cardiopulmonary arrest Care Teams Tabber Relationship Specialty Start Date End Date Lo Jay NP [address] [place] [id number] PCP - General Family Medicine 02/15/25 Jaiden Quigley MD [address] [place] [address] 02/15/25 Ruth Navarrete MD [address] [place], [place] [id number] Consulting Physician Family Medicine 06/06/19 Clare Coronado CNM [address] [place], [place] [id number] Nurse Practitioner Midwifery 01/07/21 Nikolai Martin MD [address] [place] [address] Consulting Physician General Surgery 04/16/22
--- OUTSIDE RECORDS SUMMARY | 2025-05-09 12:19 | XMS_ITS ---
Author Organization [facility] Address [address] [place] [address] Care Team Providers Care Knifer Up Name Role Phone Lo Jay NP Primary Care Provider Jaiden Quigley MD Unavailable Ruth Navarrete MD Unavailable [phone] Clare Coronado [facility] Unavailable [phone] Nikolai Martin MD Unavailable [phone] Active Problems Problem Noted Date Diagnosed Date Cough 02/15/2025 Cholestasis 07/02/2022 Elevated LFTs 06/09/2022 Overview (06/09/2022): Added automatically from request for surgery [id number] Abdominal pain 06/09/2022 Overview (06/09/2022): Added automatically from request for surgery [id number] Calculus of gallbladder with out cholecystitis without obstruction 04/13/2022 Overview (04/13/2022): Added automatically from request for surgery [id number] Gestational hypertension, third trimester 2020 Encounter for [...] appointment with: * [facility] - [facility] - [id number] [facility] [place], [place] [address]Nbjj to schedule an appointment in 1 and 6 weeks. Follow up task sent to [facility] scheduling pool. Prior to discharge she was consented and [facility]. She verified enrollment [...] [x] Blue Team Referring Provider: Clare Patel [phone] [x] Dating Criteria: [place] with ADIS 03/27/21 [...] Flu Shot (Jun-Sep):07/18/20 [x] Tdap (27-36wks): at [facility] 01/2021 3rd Tri Labs: [x] CBC [10.3/30/288K] [...] at length 02/25/2021. Plans formula feeding. [x] Pack Worker Supervisor: Discussed 02/25/2021 [x] PP Depression Discussed: Discussed increased risk, given anxiety 02/25/2021. Patient to followup with mental health provider before or within 1-2 weeks to touch base and restart medications. 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 Past Treatment and Therapy Plans No past plan information found. Lifetime Dose Tracking * Chemical Lifetime Dose Automatic Entry Manual Entr y Fluoro Time 8.1 minutes 8.1 minutes 0 minutes Air kerma at the reference point (Ka,r) 201 mGy 2 01 mGy 0 mGy
== END 2025-05-09 12:17 | disposition home or self-care (01) ==
LOC: CHSIMG 12:17
DX: Z12.31 Encounter for screening mammogram for malignant neoplasm of breast (principal)
CPT/HCPCS: 77063; 77067